=== PATIENT | female | born 1960 | race Caucasian/White ===

== ENCOUNTER 2023-04-14 12:39 | Outpatient (REF) | payer OTHER, SELFPAY ==
[2023-04-14 13:36] LABS: MANUAL DIFF FLAG NO
[2023-04-14 14:20] LABS: Basophils Percent Auto 0.5 % (0-2); Eosinophils Absolute Auto 0.2 X10*3/uL (0.0-0.4); Eosinophils Percent Auto 3.2 % (0-4); Hematocrit 41.9 % (37.0-47.0); Imm Gran Abs Auto 0.03 X10*3/uL (0.00-0.03); Imm Gran Pct Auto 0.5 % (0.0-0.4); Lymphocytes Absolute Auto 1.7 X10*3/uL (1.2-4.9); Lymphocytes Percent Auto 27.5 % (20-40); Mean Corpuscular HGB Conc 33.4 g/dl (31.0-35.0); Mean Corpuscular Volume 92.7 fL (80.0-98.0); Mean Platelet Volume 12.6 fL (9.4-12.3); Monocytes Absolute Auto 0.5 X10*3/uL (0.1-1.2); Monocytes Percent Auto 8.2 % (2-11); Neutrophils Absolute Auto 3.8 x10*3/uL (2.0-8.3); Neutrophils Percent Auto 60.1 % (45-73); Platelet Count 225 X10*3/uL (160-400); Red Blood Count 4.52 X10*6/uL (4.20-5.50); Red Cell Distribution Width 12.9 % (11.0-16.0); White Blood Count 6.3 X10*3/uL (4.8-10.8)
[2023-04-14 15:05] LABS: Alanine Aminotransferase 21 U/L (0-31); Albumin Level 4.2 g/dL (3.5-5.0); Alkaline Phosphatase 68 U/L (39-117); Anion Gap 13 (12-20); Aspartate Amino Transferase 17 U/L (5-31); Bilirubin Total 0.8 mg/dL (0.0-1.0); Blood Urea Nitrogen 13 mg/dL (9-16); Calcium 9.9 mg/dL (8.4-10.2); Carbon Dioxide 28 mmol/L (22-29); Chloride 107 mmol/L (96-108); Estimated Glomerular Filt Rate > 60; Glucose Random 85 mg/dL (60-115); Lipase 25 U/L (8-78); Potassium 4.3 mmol/L (3.3-5.1); Sodium 144 mmol/L (135-145)
[2023-04-14 15:15] LABS: Thyroid Stimulating Hormone 1.86 uIU/mL (0.32-4.0)
== END 2023-04-14 12:40 | disposition home or self-care (01) ==
LOC: HO.LAB 12:39
PROVIDERS: PCP Nurse Practitioner; Visit Provider Physician Assistant
DX: K58.9 Irritable bowel syndrome, unspecified (principal); R10.9 Unspecified abdominal pain; R11.2 Nausea with vomiting, unspecified
CPT/HCPCS: 36415; 80053; 83690; 84443; 85025

== ENCOUNTER 2023-05-07 09:17 | Outpatient (REF) | payer OTHER, SELFPAY ==
--- NOTE | ~2023-05-07 | US_ITS ---
EXAMINATION: US ABDOMEN COMPLETE CLINICAL INFORMATION: Unspecified abdominal pain. COMPARISON: None available. TECHNIQUE: Real-time imaging of the abdominal viscera. FINDINGS: PANCREAS: Normal. ABDOMINAL AORTA: The proximal, mid, and distal segments are normal in caliber. INFERIOR VENA CAVA: Visualized portions are normal. LIVER: Normal. The liver is normal in size. The liver contour is normal. Parenchymal echogenicity is normal. No focal hepatic lesion. There is no intrahepatic biliary duct dilatation seen. GALLBLADDER: The gallbladder is physiologically distended. Multiple mobile gallstones are present. No evidence of gallbladder wall thickening or pericholecystic fluid. COMMON BILE DUCT: Normal in caliber measuring 0.34 cm in diameter. RIGHT KIDNEY: Normal. No hydronephrosis. No renal calculi or focal parenchymal lesions. The kidney measures 12.2 cm in maximum dimension. LEFT KIDNEY: Normal. No hydronephrosis. No renal calculi or focal parenchymal lesions. The kidney measures 12.0 cm in maximum dimension. SPLEEN: Normal. The spleen measures 9.8 cm in maximum dimension. FREE FLUID: None. US/US abdomen complete IMPRESSION: There is cholelithiasis, without cholecystitis or choledocholithiasis.
== END 2023-05-07 09:18 | disposition home or self-care (01) ==
LOC: HO.US 09:17
PROVIDERS: PCP Nurse Practitioner; Visit Provider Physician Assistant
DX: R10.9 Unspecified abdominal pain (principal); R11.2 Nausea with vomiting, unspecified
CPT/HCPCS: 76700

== ENCOUNTER 2023-06-01 11:08 | Outpatient (AMB) | payer OTHER, SELFPAY ==
--- NOTE | 2023-06-01 11:16 | MHC.OFFVIS ---
Intake Vital Signs 06/01/23 11:18 Height 5 ft 7.5 in Weight 225 lb BMI 34.7 BP 139/75 Blood Pressure Location Lt brachial Position Sitting Pulse 91 Intake Visit Reasons: follow up after US Intake Note: Patient follow up for abdominal pain, lab and US results. Patient denies any GI issues. Cement Patcher Required: No Accompanied by: Self / Same As Patient Allergies No Known Allergies Allergy (Verified 06/01/23 11:16) HPI HPI Comments History of Present Illness Details A 62 y/o female persistent epigastric pain , with nausea and vomiting-f/u after U/S. She has made dietary modifications- changed eating routine-does fasting with very good response-she seems to feel better overall. However she have a celebratory we can and she overate a lot of greasy food/ oreos before bed- epigastric pain- woke up and vomited. She in followed a better eating plan is not have any symptoms She is very anxious about her symptoms she is leaving for an extended stay in for over the next 2 weeks. Reviewed U/S- revealing cholelithiasis Reviewed labs normal liver enzymes She has no hematemesis, hematochezia fever or chills [facility] Social History Household Members Other:: no kids Alcohol intake: current Patient Tobacco Use Status: Former Tobacco user Current occupational status: employed Review of Systems Const All systems reviewed & are unremarkable except as noted in HPI and below Card Denies chest pain and Denies dyspnea Resp Denies dyspnea GI Reports as per HPI, Reports abdominal pain (Worsens with certain foods) and Denies hematochezia Psych Reports anxiety Physical Exam Vital Signs: Last Vital Signs Pulse 91 06/01/23 11:18 BP 139/75 06/01/23 11:18 BMI result Body Mass Index 34.7 Const General: cooperative, comfortable and no acute distress Nutritional Appearance: overweight Orientation/consciousness: patient oriented x3 Limitations: no limitations Eyes Sclerae: sclerae normal Resp Effort & Inspection: normal respiratory effort and able to speak in complete sentences Skin General skin exam: no rashes or lesions noted Neuro General: patient oriented x3 Extrem General: Yes full ROM Psych Mental Status: mental status grossly normal Speech and movement: Clear speech present Affect: Labile affect present Attitude: cooperative Thought process: Normal thought process present Thought content: Normal thought content present Results Reviewed Results Reviewed: US/US abdomen complete IMPRESSION: There is cholelithiasis, without cholecystitis or choledocholithiasis. Assessment & Plan Assessment & Plan (1) Abdominal pain: Comment: Epigastric pain x1 year-workup labs, imaging Chest received note including findings on CT from 05/2022 with no findings to account for her symptoms Code(s): R10.9 - Unspecified abdominal pain (2) Cholelithiases: Comment: Intermittent abdominal pain, nausea vomiting then resolves, Code(s): K80.20 - Calculus of gallbladder without cholecystitis without obstruction Plan: HIDA scan Hopefully can be done prior to her relocation Plan Avoid culprits, abstain from alcohol, monitor symptoms She will call for results of scan Encouraged to call with any other questions or concerns Orders: Orders NM hepatobiliary w pharm Today K80.20 - Calculus of gallbladder without cholecystitis without obstruction, R10.9 - Unspecified abdominal pain Patient Instructions: 62-year-old female persistent epigastric pain nausea vomiting associated with no in culprits Reviewed ultrasound results reveal cholelithiasis-discuss referral to surgery, however she is going to be acid she sits for the next 4 or so months she declined referral Order - HIDA scan Avoid culprits, stain from alcohol Encouraged to call questions or concerns Coding Level of Care Code Est Pt Level 3 (69077) Diagnoses Abdominal pain R10.9 Cholelithiases K80.20 Time Spent (min) 30
[2023-06-01 11:18] VITALS: BP 139/75; PULSE 91; BMI 34.7
== END 2023-06-01 12:21 | disposition home or self-care (01) ==
PROVIDERS: PCP Nurse Practitioner; Visit Provider Physician Assistant
DX: R10.9 Unspecified abdominal pain (principal); K80.20 Calculus of gallbladder without cholecystitis without obstruction
CPT/HCPCS: 99213

== ENCOUNTER → 2023-06-01 11:08 | Outpatient (BNVA) | payer OTHER, SELFPAY | PROVIDERS: PCP Nurse Practitioner; Visit Provider Physician Assistant ==

== ENCOUNTER → 2023-06-11 10:59 | Outpatient (REF) | payer OTHER, SELFPAY ==
--- NOTE | ~2023-06-11 | NM_ITS ---
EXAMINATION: NM BILIARY TRACT CLINICAL INFORMATION: Upper abdominal pain. COMPARISON: None available. TECHNIQUE: 5 mCi technetium mebrofenin and 2 mcg CCK. Images obtained over the upper abdomen. FINDINGS: Uptake by the liver is within normal limits. Ductal activity by 10 minutes. Gallbladder activity by 14 minutes. Bowel activity by 17 minutes. Subsequent injection of CCK does not demonstrate any emptying of the gallbladder. NM/NM hepatobiliary w pharm IMPRESSION: Status post CCK administration there is no discernible emptying of the gallbladder. Therefore findings may well be consistent with dyskinesis of the gallbladder.
== END ==
LOC: HO.NUCMED 10:59
PROVIDERS: PCP Internal Medicine; Visit Provider Physician Assistant
DX: R10.9 Unspecified abdominal pain (principal); K80.20 Calculus of gallbladder without cholecystitis without obstruction
CPT/HCPCS: 78227; A9537; J2805

== ENCOUNTER 2023-07-12 08:27 | Outpatient (AMB) | payer OTHER, SELFPAY ==
[2023-07-12 08:28] VITALS: BP 140/83; PULSE 81; BMI 34.6
--- NOTE | 2023-07-12 08:28 | MHC.OFFVIS ---
Intake Vital Signs 07/12/23 08:28 Height 5 ft 7.5 in Weight 224 lb BMI 34.6 BP 140/83 H Blood Pressure Location Rt brachial Position Sitting Pulse 81 Intake Visit Reasons: Cholelithiasis Intake Note: This patient presents for an assessment for cholelithiasis. Patient c/o; reports epigastric pain, reports vomiting. HIDA Scan: 06/11/2023 Car Installations Supervisor Required: No Accompanied by: Self / Same As Patient Allergies No Known Allergies Allergy (Verified 07/12/23 08:36) Medication List - Last Reconciled 07/12/23 by Elías Reddy MD No Known Home Meds HPI Cholelithiasis HPI Details 62-year-old female referred for gallstones. She is being followed by Gastroenterology for a long history of recurrent nausea, occasional vomiting, along with chronic epigastric pain. She says that this has been going on for over a year and a half. She does not think that this is related to meals or fat oral intake. She says that this seems to come on randomly even at night. She says that he has can be sharp and would last for about 4 are sometimes and would be localized to the epigastric area. She had an ultrasound last May, showing gallstones. She had a HIDA scan as well which showed poor emptying of the gallbladder. [facility] Social History Household Members Other:: no kids Alcohol intake: current Patient Tobacco Use Status: Former Tobacco user Current occupational status: employed Review of Systems Const Denies chills and Denies fever(s) Card Denies chest pain, Denies dyspnea and Denies dyspnea on exertion Resp Denies cough, Denies dyspnea and Denies dyspnea on exertion GI Denies hematochezia and Denies change in bowel habits Denies hematuria Musc Denies back pain and Denies limited range of motion Neuro Denies focal weakness and Denies convulsions Psych Denies depression and Denies mood swings Physical Exam Vital Signs: Last Vital Signs Pulse 81 07/12/23 08:28 BP 140/83 H 07/12/23 08:28 BMI result Body Mass Index 34.6 Const General: comfortable and no acute distress Orientation/consciousness: patient oriented x3 Neck Neck: Yes no lymphadenopathy Resp Auscultation: clear to auscultation bilaterally Cardio Rhythm: regular rhythm GI Palpation (GI): Soft to palpation, nontender and no guarding Neuro General: patient oriented x3 Assessment & Plan Assessment & Plan (1) Cholelithiases: Comment: Intermittent abdominal pain, nausea vomiting then resolves, Code(s): K80.20 - Calculus of gallbladder without cholecystitis without obstruction Plan: She has a long history of intermittent epigastric pain and nausea. She does have gallstones on ultrasound as well as low ejection fraction. I had long discussion with her about the option of cholecystectomy in view of her above symptoms which may be related to her gallstones and dyskinesia. I explained the technique of laparoscopic cholecystectomy and possible open cholecystectomy. I reviewed the risks including but not limited to bleeding, infections, injury to bowel, liver, bile duct, bile leak, retained stones, as well as the benefits and alternatives. She understands the above. She says that her pain is in the epigastric area only and I did tell her that I not guarantee that this will totally resolve with cholecystectomy. One differential will be thick ulcer disease so I did tell her the option of going ahead with endoscopy with the GI service prior to surgery. She does spend asencio in [place] and will be back area in October,. She says she would like to therefore scheduled for endoscopy with the GI service for now and will see me after that. (2) Dyskinesia of gallbladder: Code(s): K82.8 - Other specified diseases of gallbladder Plan: She understands the option of proceeding with cholecystectomy for poor ejection fraction. He wants to proceed with endoscopy prior to going ahead with laparoscopic cholecystectomy. Coding Level of Care Code New Pt Level 4 (06398) Diagnoses Cholelithiases K80.20 Dyskinesia of gallbladder K82.8
== END 2023-07-12 08:57 | disposition home or self-care (01) ==
PROVIDERS: PCP Nurse Practitioner; Referring Provider Physician Assistant; Visit Provider Surgery
DX: K80.20 Calculus of gallbladder without cholecystitis without obstruction (principal); K82.8 Other specified diseases of gallbladder
CPT/HCPCS: 99204

== ENCOUNTER → 2023-07-12 08:27 | Outpatient (BNVA) | payer OTHER, SELFPAY | PROVIDERS: PCP Nurse Practitioner; Referring Provider Physician Assistant; Visit Provider Surgery ==

== ENCOUNTER 2023-10-26 09:01 | Day surgery (SDC) | payer OTHER, SELFPAY ==
[2023-10-22 14:38] VITALS: BMI 34.7
--- NOTE | 2023-10-26 09:22 | MHC.SHP ---
Pre-Procedural Eval Section A - 24 Hr Update-Section A only Date of Service: 10/26/23 Section B - Complete if H&P > 30 days Chief Complaint: Unspecified abdominal pain Relevant Family History (Specify if Yes): No Relevant Social History: Alcohol Use Present Medications: see Short Stay Collaborative assessment Medical History: Significant History ( Epigastric pain Cholelithiasis) History of Previous Operations: Relevant previous surgery/procedure and date(s) ( H/O colonoscopy Hx of total knee replacement) Allergies: Allergies Allergy/AdvReac Type Severity Reaction Status Date / Time No Known Allergies Allergy Verified 07/12/23 08:36 Review of Systems Sugical H&P ROS: Negative: Constitution, Cardiovascular, Respiratory, Neurological, Psychiatric, Hem-Onc, Allergic/Immunologic, Gastrointestinal, Genitourinary, Musculoskeletal, Integumentary, Endocrine and Eyes/Ears/Nose/Throat Exam Surgical H&P Exam: Normal: HEENT, Normal: Heart, Normal: Lungs, Normal: Extremities, Normal: Abdomen, Normal: Skin and Normal: Neurological Plan Diagnosis/Plan: Unchanged I have reviewed the history and physical and performed a pertinent physical examination on my patient. No changes have occurred unless specified. Time Spent With Patient Time: Total time managing care of this patient today ____ minutes.
[2023-10-26 09:31] VITALS: BMI 34.7
[2023-10-26 09:36] VITALS: BP 163/87; PULSE 64; RESP 16; TEMP 36.4; O2SAT 99
--- NOTE | 2023-10-26 09:47 | P.CONAN_ITS ---
[facility] Active Problems Active Problems: All Active Problems (Updated 10/22/23 @ 14:43 by India Acuna RN) Dyskinesia of gallbladder (Acute) Cholelithiases (Acute) Nausea and vomiting (Acute) History of knee replacement (Acute) Abdominal pain (Acute) Past Medical History Medical History Epigastric pain Cholelithiasis Family History Family history of problems with anesthesia: No Surgical History Surgical History H/O colonoscopy Hx of total knee replacement History of Problems with Anesthesia: No Social History Social History Household Members Other:: no kids Alcohol intake: current Patient Tobacco Use Status: Former Tobacco user Use of substances other than those prescribed or required for medical reasons: No Are you DNR?: No Advance Directives: No Advance Directives Information Provided: Yes Current occupational status: employed Meds Allergies Allergy/AdvReac Type Severity Reaction Status Date / Time No Known Allergies Allergy Verified 10/26/23 09:30 Home Medications Medication Instructions Recorded Confirmed Last Taken Type No Known Home Meds 06/01/23 10/26/23 Unknown History Exam Height,Weight and Vital Signs: Height 5 ft 7.5 in Weight 102.058 kg Last Vital Signs Temp 97.6 F 10/26/23 09:36 Pulse 64 10/26/23 09:36 Resp 16 10/26/23 09:36 BP 163/87 H 10/26/23 09:36 Pulse Ox 99 10/26/23 09:36 O2 Del Method Room Air 10/26/23 09:36 Airway Mallampati Class: I TM Dist: >3cm Neck ROM: Full Assessment and Plan Assessment Anesthesia Assessment: Anesthesia Plan Discussed and Chart Reviewed Final Anesthetic Review Family History of Problems with Anesthesia: No History of Problems with Anesthesia: No NPO: Yes ASA Class: II Final Preanesthetic Review: No Changes in Pt Med Stat, Meds/Allgs Chart Reviewed, Consent Obtained/Reviewed and Anes Risks/Benef Reviewed Patient Risk: Low Procedure Risk: Low Anesthetic Plan Anesthetic Plan: TIVA Disposition: Standard PACU
--- NOTE | 2023-10-26 10:20 | W.PM.OPN ---
Operative Note Operative Note Date of Service: 10/26/23 Narrative: Procedure Description: EGD Indication: epigastric pain Anesthesia: MAC FLEXIBLE TRANSORAL UPPER GASTROINTESTINAL ENDOSCOPY UPPER ENDOSCOPY Consent: Indications for the procedure and potential complications of bleeding, perforation, reaction to medications and missed diagnosis were discussed with the patient and informed consent was obtained. Instrument: Olympus GIF H 190 J mid size upper endoscope Monitoring: Vital signs and clinical assessment, continuous EKG monitoring, Pulse oximetry, Carbon Dioxide monitoring and blood pressure monitoring were done throughout the procedure. Procedure: The patient was placed in the left lateral decubitis position and pre-procedure medications were administered and a bite block was placed. The endoscope was inserted into the mouth and advanced under direct vision to the third part of duodenum. A careful inspection was made as the upper endoscope was withdrawn including a retroflexed examination of the proximal stomach; Findings and interventions are described below. Findings: Larynx:normal Esophagus: GE junction at 38 cm, diaphragm hiatus at 40 cm, consistent with 2 cm sliding hiatal hernia, with non obstructive schatzki ring noted, mild erythema noted at GEJ, bx taken from here as well as distal esophagus. Stomach: mild patchy erythema . Biopsies were obtained. Grade 2 flap valve on retroflexed examination of the cardia. Duodenum: Normal bulb and descending duodenum, bx taken Intervention: Biopsies as noted above, Impression/Findings: gastritis esophagitis schatzki ring hiatal hernia PLAN: consider PPI trial and see if helps her symptoms GERD precautions
[2023-10-26 10:25] VITALS: BP 121/72; PULSE 75; RESP 12; TEMP 36.4; O2SAT 100
[2023-10-26 10:40] VITALS: BP 126/81; PULSE 58; RESP 16; O2SAT 96
[2023-10-26 10:55] VITALS: BP 135/83; PULSE 70; RESP 16; TEMP 36.4; O2SAT 96
== END 2023-10-26 11:54 | disposition home or self-care (01) ==
PROVIDERS: PCP Internal Medicine; Visit Provider Internal Medicine Gastroenterology
PROC: 0DJ08ZZ Inspection of Upper Intestinal Tract, Via Natural or Artificial Opening Endoscopic (ICD-10-PCS; CPT 43235; principal; 2023-10-26 11:20)
DX: K31.A0 Gastric intestinal metaplasia, unspecified (principal); K29.70 Gastritis, unspecified, without bleeding; K20.90 Esophagitis, unspecified without bleeding; K29.80 Duodenitis without bleeding; K22.2 Esophageal obstruction; K44.9 Diaphragmatic hernia without obstruction or gangrene
CPT/HCPCS: 43239; 88305; 88313; 88342; J2704

== ENCOUNTER → 2023-10-26 09:01 | Outpatient (BNV) | payer OTHER, SELFPAY | PROVIDERS: PCP Internal Medicine; Visit Provider Internal Medicine Gastroenterology | DX: K20.90 Esophagitis, unspecified without bleeding (principal); K29.70 Gastritis, unspecified, without bleeding; K22.2 Esophageal obstruction | CPT/HCPCS: 43239 ==

== ENCOUNTER 2023-11-23 10:22 | Outpatient (REF) | payer OTHER, SELFPAY ==
[2023-11-25 10:29] LABS: H Pylori Breath Test Negative (Negative)
== END 2023-11-23 10:23 | disposition home or self-care (01) ==
LOC: HO.LNP 10:22
PROVIDERS: PCP Internal Medicine; Visit Provider Internal Medicine Gastroenterology
DX: R10.9 Unspecified abdominal pain (principal)
CPT/HCPCS: 83013

== ENCOUNTER 2024-12-14 11:01 | Outpatient (AMB) | payer OTHER, SELFPAY ==
--- NOTE | 2024-12-14 11:02 | MHC.OFFVIS ---
Vital Signs 12/14/24 11:05 Height 5 ft 7.5 in Weight 215 lb BMI 33.2 BP 140/86 H Blood Pressure Location Lt brachial Position Sitting Pulse 75 Pulse Oximetry (%) 97 Oxygen Delivery Method Room Air Intake Visit Reasons: Vomitting & abd. pain Intake Note: Patient complex follow up for vomit and abdominal pain/Angle berna was 06/01/2023 and last EGD was 10/26/[address] Shah. Patient cc: vomit on and off, abdominal pain come and go and also acid reflux on and off. 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 pain: Details: Patient is a 64-year-old female with PMH of obesity and GERD. Last visit with MIRA Ragland 06/01/2023 for follow-up as epigastric pain. Pt is here today for follow up on ab pain. She reports symptoms first began intermittently over the past two years and have been worsening. The patient experiences severe epigastric pain that awakens them at night, occurring approximately three times a week. They feel relief from the pain after inducing vomiting. The symptoms seem to have improve this past week after the elimination of coffee. The patient previously had an endoscopy in October 2023, revealing inflammation in the esophagus and stomach but did not follow up with the prescribed PPI, pantoprazole. They also have a history of gallbladder motility issues assessed via ultrasound and HIDA scan, with reports of her gallbladder functioning at 40%. She reports labs within the last 2-3 weeks, completed at lab [facility], ordered by [facility] provider. Shares upcoming screening colonoscopy scheduled for January with an outside agency. Minoxidil 1.5 mg with multivitamin blend (recently started) prescribed through [facility] for hair loss. Patient denies: fever/chills, dysphasia, unintentional wt loss or melena/hematochezia. Social hx: Diet: Recently eliminated coffee Alcohol/Tobacco/Drug Use: Drinks two beers daily, quit smoking 20 years ago, no recreational drug use Occupation: Active at work, sedentary at home -family hx as below -denies personal hx of CA -denies significant cardiopulmonary history PFSH Medical History (Updated 12/14/24 @ 12:11 by Tennille Cardenas CNP) Acid reflux Epigastric pain Cholelithiasis Surgical History History of esophagogastroduodenoscopy (EGD) H/O colonoscopy Hx of total knee replacement Family History (Updated 12/14/24 @ 11:33 by Tennille Cardenas CNP) Mother Maury disease Heart transplant recipient Social History Household Members Other:: no kids Alcohol intake: current Patient Tobacco Use Status: Former Tobacco user Current occupational status: employed Review of Systems Const Reports as per HPI ENT Reports as per HPI Card Reports as per HPI Resp Reports as per HPI GI Reports as per HPI Reports as per HPI Physical Exam Vital Signs: Last Vital Signs Pulse 75 12/14/24 11:05 BP 140/86 H 12/14/24 11:05 Pulse Ox 97 12/14/24 11:05 Oxygen Delivery Method Room Air 12/14/24 11:05 BMI result Body Mass Index 33.2 Const General: healthy appearing, no acute distress and well developed Nutritional Appearance: well nourished Orientation/consciousness: patient oriented x3 HEENT Head: Yes normal to inspection, Yes normocephalic and Yes atraumatic Face and sinus: Yes normal facial exam Eyes General: appearance normal, both eyes and all related structures Neck Neck: Yes normal visual inspection Resp Effort & Inspection: normal respiratory effort, able to speak in complete sentences, no tracheal deviation and symmetric chest movement Auscultation: clear to auscultation bilaterally Cardio Jugular venous distension: no JVD Rate: regular rate Rhythm: regular rhythm Heart sounds: S1 normal heart sound present, S2 normal heart sound present, no gallops and no murmurs GI Inspection: Yes obesity Palpation (GI): Soft to palpation, not firm, Tenderness to palpation present (GI) (Epigastric tender to palpation per pt report; no objective findings ) in the epigastrum and No hepatosplenomegaly present Auscultation: normal bowel sounds Neuro General: patient oriented x3 Gait exam (Neuro): Normal gait present Psych Appearance: grossly normal Mental Status: mental status grossly normal Speech and movement: Normal speech and movement present Affect: normal affect Attitude: cooperative Thought process: Normal thought process present Thought content: Normal thought content present Insight: Good insight present (Psych) Judgement: Good judgement present (Psych) Results Reviewed Results Reviewed: Addendum Dictated By: Lucas Shah MD Addendum Signed By: 10/26/23 1054 pt agreeable to PPI trial, admits to taking a lot of nsaid, advised to cut back and can use tylenol Operative Note Operative Note Date of Service: 10/26/23 Procedure Description: EGD Indication: epigastric pain FLEXIBLE TRANSORAL UPPER GASTROINTESTINAL ENDOSCOPY UPPER ENDOSCOPY Procedure: The patient was placed in the left lateral decubitis position and pre-procedure medications were administered and a bite block was placed. The endoscope was inserted into the mouth and advanced under direct vision to the third part of duodenum. A careful inspection was made as the upper endoscope was withdrawn including a retroflexed examination of the proximal stomach; Findings and interventions are described below. Findings: Larynx:normal Esophagus: GE junction at 38 cm, diaphragm hiatus at 40 cm, consistent with 2 cm sliding hiatal hernia, with non obstructive schatzki ring noted, mild erythema noted at GEJ, bx taken from here as well as distal esophagus. Stomach: mild patchy erythema . Biopsies were obtained. Grade 2 flap valve on retroflexed examination of the cardia. Duodenum: Normal bulb and descending duodenum, bx taken Intervention: Biopsies as noted above, Impression/Findings: gastritis esophagitis schatzki ring hiatal hernia PLAN: consider PPI trial and see if helps her symptoms GERD precautions Pathology Collected: 10/26/23 Location: [facility] Received: 10/26/23 Diagnosis A. Duodenum, biopsy: Chronic inactive duodenitis. B. Stomach, biopsy: Antral-type and oxyntic mucosa with moderate chronic, focally active, inflammation and intestinal metaplasia; negative for dysplasia; no Helicobacter organisms seen. C. GE junction, biopsy: - Cardiac-type mucosa with moderate chronic inactive inflammation; no intestinal metaplasia seen. - No squamous epithelium seen. D. Esophagus, distal, biopsy: Squamous epithelium within normal limits; no inflammation seen. Clinical History Pre-Op Dx: Abdominal pain Post-Op Dx: Gastritis, esophagitis, hiatal hernia, Schatzki's ring Date of Service: 06/11/23 Procedure(s): AR hepatobiliary w pharm Accession Number(s): [id number] cc: Angle Orozco PA-C; George Medina MD~ EXAMINATION: AR BILIARY TRACT CLINICAL INFORMATION: Upper abdominal pain. COMPARISON: None available. TECHNIQUE: 5 mCi technetium mebrofenin and 2 mcg CCK. Images obtained over the upper abdomen. FINDINGS: Uptake by the liver is within normal limits. Ductal activity by 10 minutes. Gallbladder activity by 14 minutes. Bowel activity by 17 minutes. Subsequent injection of CCK does not demonstrate any emptying of the gallbladder. AR/AR hepatobiliary w pharm IMPRESSION: Status post CCK administration there is no discernible emptying of the gallbladder. Therefore findings may well be consistent with dyskinesis of the gallbladder. Date of Service: 05/07/23 Procedure(s): US abdomen complete Accession Number(s): [id number] cc: FRANC GONZALEZ NP; Angle Orozco PA-C~ EXAMINATION: US ABDOMEN COMPLETE CLINICAL INFORMATION: Unspecified abdominal pain. COMPARISON: None available. TECHNIQUE: Real-time imaging of the abdominal viscera. FINDINGS: PANCREAS: Normal. ABDOMINAL AORTA: The proximal, mid, and distal segments are normal in caliber. INFERIOR VENA CAVA: Visualized portions are normal. LIVER: Normal. The liver is normal in size. The liver contour is normal. Parenchymal echogenicity is normal. No focal hepatic lesion. There is no intrahepatic biliary duct dilatation seen. GALLBLADDER: The gallbladder is physiologically distended. Multiple mobile gallstones are present. No evidence of gallbladder wall thickening or pericholecystic fluid. COMMON BILE DUCT: Normal in caliber measuring 0.34 cm in diameter. RIGHT KIDNEY: Normal. No hydronephrosis. No renal calculi or focal parenchymal lesions. The kidney measures 12.2 cm in maximum dimension. LEFT KIDNEY: Normal. No hydronephrosis. No renal calculi or focal parenchymal lesions. The kidney measures 12.0 cm in maximum dimension. SPLEEN: Normal. The spleen measures 9.8 cm in maximum dimension. FREE FLUID: None. US/US abdomen complete IMPRESSION: There is cholelithiasis, without cholecystitis or choledocholithiasis Assessment & Plan Assessment & Plan (1) Acid reflux: Comment: EGD October 2023-Gastritis, esophagitis, hiatal hernia, Schatzki's ring Code(s): K21.9 - Gastro-esophageal reflux disease without esophagitis Category: Medical Qualifiers: Esophagitis bleeding: without hemorrhage Esophagitis presence: with esophagitis Qualified Code(s): K21.00 - Gastro-esophageal reflux disease with esophagitis, without bleeding Plan: Additional Tests: Obtain recent lab work results (CBC, CMP) from [facility] Medications: Restart pantoprazole, 30 minutes before the first meal of the day, for an 8-week trial Lifestyle Modifications: - Avoid coffee, alcohol, spicy foods, acidic foods - Smaller meals, avoid lying down immediately after eating, remain upright for 2-3 hours post-meal - Increase physical activity to 150 minutes of moderate exercise per week Follow-Up: Evaluate symptom improvement after 8 weeks of pantoprazole, consider weaning off if symptoms improve (2) Abdominal pain: Comment: HIDA scan June 2023-dyskinesis of the gallbladder Code(s): R10.9 - Unspecified abdominal pain Category: Medical Qualifiers: Abdominal location: epigastric Qualified Code(s): R10.13 - Epigastric pain Plan: Secondary to acid reflux VS gallbladder dysfunction. Shared decision-making to trial plan as above. Referral: Submitted for surgical consultation if lifestyle modifications and PPI trial are ineffective Instructed to monitor for symptom escalation such as increased frequency or severity of pain, fever, or changes in bowel habits Plan Follow-up in 4 weeks or sooner as needed Time: I spent a total of 50 minutes on the date of encounter which includes: Preparing to see the patient (reviewed previous documentation, test results and medical history) Performing a medically appropriate exam and/or evaluation Ordering medications, tests, and procedures Documenting clinical information in the health record Medications: Changed From pantoprazole 20 mg PO DAILY 90 tabs 2RF To pantoprazole Take one tablet daily, best taken before 30 minutes before meals 20 mg PO DAILY 90 tabs 2RF Coding Level of Care Code Established Pt Est Pt Level 4 (94139) Patient Type Established Diagnoses Gastroesophageal reflux disease with esophagitis without hemorrhage K21.00 Esophagitis bleeding: without hemorrhage Esophagitis presence: with esophagitis Epigastric pain R10.13 Abdominal location: epigastric
[2024-12-14 11:05] VITALS: BP 140/86; PULSE 75; O2SAT 97; BMI 33.2
--- OUTSIDE RECORDS SUMMARY | 2024-12-14 12:32 | XMS_ITS | Continuity of Care Document ---
Author Organization [facility] Address [address] [place] [address] Phone Care Team Providers Care Sales Merchandising Specialist Name Role Phone Sukhdev Ortiz Unavailable Unavailable Allergies, Adverse Reactions, Alerts Substance Reaction Status Criticality No Known Allergies Active No Inform ation Procedures Procedure Date Offic/outpt E&m Estab 5 Min Trial- Telem edicine CT & [place] Office/Outpt E&M Established 10 Mins- CT & [place] Phleb Veins - Extrem 20+ - CT & [place] Duplex Scan-extrem Veins; Uni/ CT & [place] O Endovenous Laser, 1st Vein- CT & [place] Ultrason Guidan Needle Bx-rad- CT & [place] O Inj Sclerosing Solution; Sngl- CT & [place] O ct Offic/outpt E&m Estab 5 Min Trial- Telem edicine CT & [place] Offic Cons New/estab Mod-hi 60- CT & [place] Duplex Scan-extrem Veins; Comp- CT & [place] Advance Directives Directive Yes / No Effective Date File Name No Information Encounters Encounter Description Practice Location Reason(s) For Visit Diagnoses Date Provider Providers Copied on Encounter Offic/outpt E&m Estab 5 Min Trial- Telemedicine [place] & [place] [facility], [address] [place] [address] [address], [id number], [place] tel:[phone] CVR [facility] Venous insufficienc y (chronic) (peripheral) 4 Godwin Santizo. [address] [place] [address] [address], [facility] [place], [id number], [place]. tel:[phone] Referring Provider: Viridiana Connor NP, [address] [place] [address] [address] , [place], [address]. tel:[phone] Office/Outpt E&M Established 10 Mins- CT & [place] [facility], [address] [place] [address] [address], [id number], [place] tel:[phone] CVR - [facility] Varicose veins of left lower extremity with pain 4 Ned LEIJA RVT, NANCY Albert. [address] [place] [address], [place], [id number], [place]. tel:[phone] Referring Provider: Viridiana Connor NP, [address] [place] [address] [address] , [place], [address]. tel:[phone] [facility], [address] [place] [address] [address], [id number], [place] tel:[phone] CVR - [facility] Varicose veins of left lower extremity with other complication s 4 Ned LEIJA RVT, NANCY Albert. [address] [place] [address], [facility] [place], [id number], [place]. tel:[phone] Referring Provider: Viridiana Connor NP, [address] [place] [address] [address], [place], [address]. tel:[phone] [facility], [address] [place] [address] [address], [id number], [place] tel:[phone] CVR - [place] Encounter for follow-up examination after completed treatment for conditions other than malignant neoplasmVari cose veins of left lower extremity with pain 4 Ned LEIJA RVT, NANCY Albert. [address] [place] [address] Suite [facility], [facility] [place], [id number], [place]. tel:[phone] Referring Provider: Viridiana Connor NP, [address] [facility] [address], [place], [address]. tel:[phone] [facility], [address] [place] [address] Dr Alexis [address], [place], [id number], [place] tel:[phone] CVR - [facility] Chronic venous hypertension (idiopathic) with inflammation of left lower extremity Oct-2 4 Ned LEIJA RVT, NANCY Albert. [address] [place] [address], [place], [place], [id number], [place]. tel:[phone] Referring Provider: Viridiana Connor NP, [address] [facility] [address], [place], [address]. tel:[phone] [facility], [address] [place] [address] Dr Alexis [address] [address], [place], [id number], [place] tel:[phone] CVR - [facility] No Information Oct-2 4 Ned LEIJA RVT, NANCY Albert. [address] [place] [address], [place], [place], [id number], [place]. tel:[phone] Offic/outpt E&m Estab 5 Min Trial- Telemedicine [place] & [place] [facility] [place]AY, [address] [place] [address] Dr Alexis [address], [place], [id number], [place] tel:[phone] [facility] Localized edemaVenous insufficienc y (chronic) (peripheral) Oct-0 4 Godwin Santizo. [address] [place] [address], [place], [place], [id number], [place]. tel:[phone] Referring Provider: Viridiana Connor NP, [address] [facility] [address], [place], [address]. tel:[phone] Offic Cons New/estab Mod-hi 60- CT & [place] [facility], [address] [place] [address] Dr Alexis [address], [id number], [place] tel:[phone] CVR - [facility] Varicose veins of bilateral lower extremities with other complication sLocalized edema 4 Ned LEIJA RVT, NANCY Albert. [address] [facility] [address], [place], [id number], [place]. tel:[phone] Referring Provider: Viridiana Connor NP, [address] [facility] [address], [place], [address]. tel:[phone] [facility], [address] [facility] [address] [facility] [address], [place], [id number], tel:[phone] CVR - [facility] Varicose veins of bilateral lower extremities with pain 4 Ned LEIJA RVT, NANCY Albert. [address] [address], [place], [id number], [place]. tel:[phone] Referring Provider: Viridiana Connor NP, [address] [facility] [address], [place], [address]. tel:[phone] Family History Family Member Type Diagnosis Age At Onset No Information Payers Payer name Insurance type Covered constitution party [facility] [id number] Social History Type Description Quantity Date Captured Comments Alcohol Use Details Unknown Caffeine Use Details Unknown Tobacco Use Status Never smoked tobacco 2023 Smoking Status Never smoker Non-Smoking Tobacco Use Details : No Details Available : No Details Available Sex Female Chief Complaint And Reason For Visit No Information Reason For Referral Reason For Referral No Information Plan Of Treatment Date Type Action Status Goal Diet education completed Referral Ordered: Weight management: Referral to physician timeframe: 3 Months (related to Body mass index (BMI) 34.0-34.9, adult) ordered History Of Present Illness Encounter Date Complaint History Of Prese nt Illness No Information Functional Status Date Functional Assessmen t No Information Instructions Date Instruction Additional Infor mation Patient education booklet given Related to Localized edema Pre and post instruc tions reviewed and provided Related to Localized edema Diet education Related to Body mass index (BMI) 34.0-34.9, adult Giving Encouragement to exercise Related to Body mass index (BMI) 34.0-34.9, adult Lifestyle education Related to B joe mass index (BMI) 34.0-34.9, adult Patient education booklet given Related to Varicose veins of bilateral lower extremities with other complications Pre and post instruc tions reviewed and provided Related to Varicose veins of bilateral lower extremities with other complications Assessments Type Assessment Date assessment Venous insufficiency (chronic) ( peripheral) Patient Care Teams Name Effective Dates (start - stop) Status Members No Information
== END 2024-12-14 11:52 | disposition home or self-care (01) ==
LOC: HO.HGI 11:01
PROVIDERS: PCP Internal Medicine; Visit Provider Nurse Practitioner Family
DX: K21.00 Gastro-esophageal reflux disease with esophagitis, without bleeding (principal); R10.13 Epigastric pain
CPT/HCPCS: 99214

== ENCOUNTER → 2024-12-14 11:01 | Outpatient (BNVA) | payer OTHER, SELFPAY | PROVIDERS: PCP Internal Medicine; Visit Provider Nurse Practitioner Family ==

== ENCOUNTER 2025-01-16 10:57 | Outpatient (AMB) | payer OTHER, SELFPAY ==
--- NOTE | 2025-01-16 11:03 | A.OFFVIS_ITS ---
Vital Signs 01/16/25 11:05 Height 5 ft 7.5 in Weight 220 lb BMI 33.9 BP 139/86 Blood Pressure Location Lt brachial Position Sitting Pulse 68 Pulse Oximetry (%) 99 Oxygen Delivery Method Room Air Intake Visit Reasons: 4 wks abd pain Intake Note: Patient 4 weeks follow up for abdominal pain. Patient cc: vomiting on and off, abdominal pain/night time and denies any other GI issues. 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 Patricia presents for follow-up of persistent epigastric pain and vomiting, with episodes most often occurring at night after dinner. Since the last visit, frequency of sick episodes has decreased from up to three times weekly to four times over the past month, with three episodes occurring recently. An episode often begins with severe, centrally located epigastric pain approximately 3?4 hours postprandially, followed by tossing and turning, and then forced emesis after which pain resolves. The pain is described as horrible and localized to the epigastric region. Triggers have potentially included various foods (pulled pork, greasy chips, tea with kali and collagen), but also occurred after a plain chicken and stuffing meal. She notes switching from coffee to kali tea due to concern for fluid intake and GI symptoms, with suspicion that kali tea may be worsening symptoms. Since initiation of Pantoprazole 20mg oral daily, has had no symptoms of acid reflux, including when eating spicy foods (e.g., jalapeno bread). Nausea and vomiting episodes are not associated with abnormal bowel habits; she reports normal bowel function, no diarrhea, constipation, or hematochezia. No recent fever. Unable to provide recent laboratory data; patient states no reported abnormalities as per PCP. Shares upcoming screening colonoscopy scheduled for January with an outside agency. [facility] Medical History (Updated 12/14/24 @ 12:11 by Tennille Cardenas CNP) Acid reflux Epigastric pain Cholelithiasis Surgical History History of esophagogastroduodenoscopy (EGD) H/O colonoscopy Hx of total knee replacement Family History Mother Boyd disease Heart transplant recipient Social History Household Members Other:: no kids Alcohol intake: current Patient Tobacco Use Status: Former Tobacco user Current occupational status: employed Review of Systems Const Reports as per HPI ENT Reports as per HPI Card Reports as per HPI Resp Reports as per HPI GI Reports as per HPI Reports as per HPI Physical Exam Vital Signs: Last Vital Signs Pulse 68 01/16/25 11:05 BP 139/86 01/16/25 11:05 Pulse Ox 99 01/16/25 11:05 Oxygen Delivery Method Room Air 01/16/25 11:05 BMI result Body Mass Index 33.9 Const General: healthy appearing, no acute distress and well developed Nutritional Appearance: well nourished Orientation/consciousness: patient oriented x3 HEENT Head: Yes normal to inspection, Yes normocephalic and Yes atraumatic Face and sinus: Yes normal facial exam Eyes General: appearance normal, both eyes and all related structures Neck Neck: Yes normal visual inspection Resp Effort & Inspection: normal respiratory effort, able to speak in complete sentences, no tracheal deviation and symmetric chest movement Auscultation: clear to auscultation bilaterally Cardio Jugular venous distension: no JVD Rate: regular rate Rhythm: regular rhythm Heart sounds: S1 normal heart sound present, S2 normal heart sound present, no gallops and no murmurs GI Inspection: Yes normal to inspection, No distended and Yes obesity Palpation (GI): Soft to palpation, not firm, nontender and No hepatosplenomegaly present Auscultation: normal bowel sounds Neuro General: patient oriented x3 Gait exam (Neuro): Normal gait present Psych Appearance: grossly normal Mental Status: mental status grossly normal Speech and movement: Normal speech and movement present Affect: normal affect Attitude: cooperative Thought process: Normal thought process present Thought content: Normal thought content present Insight: Good insight present (Psych) Judgement: Good judgement present (Psych) Assessment & Plan Assessment & Plan (1) Dyskinesia of gallbladder: Code(s): K82.8 - Other specified diseases of gallbladder Category: Medical Plan: Confirmed by HIDA scan showing dysmotility; symptom pattern (postprandial, nocturnal pain, relieved by emesis) is consistent. Along with multiple gallstones noted on 05/07/23 ab ultrasound. - Additional Tests: - Await colonoscopy (scheduled at [facility]) to rule out lower GI pathology - Attempt to obtain recent labs from PCP (CBC, LFTs, electrolytes for further assessment, per previous order) - Medications: - Continue Pantoprazole 20mg oral daily for acid suppression - Lifestyle Modifications: - Avoid fatty, greasy, and known trigger foods - Discontinue kali tea/collagen temporarily to assess for symptom improvement - Continue previously advised postprandial upright positioning - Provided reassurance regarding manageability with dietary modification and medication potential post-cholecystectomy. Advised to coordinate discussion with general surgery team for more precise risk percentages/statistical risk. - Follow-Up: - Referral to general surgery for cholecystectomy evaluation, scheduled after visit for 01/26/25 (2) Acid reflux: Comment: EGD October 2023-Gastritis, esophagitis, hiatal hernia, Schatzki's ring Code(s): K21.9 - Gastro-esophageal reflux disease without esophagitis Category: Medical Qualifiers: Esophagitis presence: with esophagitis Esophagitis bleeding: without hemorrhage Qualified Code(s): K21.00 - Gastro-esophageal reflux disease with esophagitis, without bleeding Plan: Well documented on prior EGD; current symptoms not suggestive of active upper tract involvement while on PPI. - Medications: - Continue Pantoprazole 20mg oral daily - Lifestyle Modifications: Encouraged to take pantoprazole as prescribed, taken at least 30-60 minutes before a meal. Education on GERD prevention : -Advised against heavy meals; encouraged small, frequent meals instead of large ones. - Instructed to remain upright for 2?3 hours after eating. - Advised to avoid late-night meals, spicy foods, caffeine, alcohol, known dietary triggers, and tight-fitting clothing. - Emphasis placed on gradual implementation of lifestyle changes to improve adherence and symptom control. - Follow-Up: - Periodic monitoring for breakthrough symptoms; consider repeat EGD only if new/different symptoms develop Plan Follow-up in 4 weeks or sooner as needed Time: I spent a total of 25 minutes on the date of encounter which includes: Preparing to see the patient (reviewed previous documentation, test results and medical history) Performing a medically appropriate exam and/or evaluation Ordering medications, tests, and procedures Documenting clinical information in the health record Coding Level of Care Code Established Pt Est Pt Level 3 (76461) Patient Type Established Diagnoses Dyskinesia of gallbladder K82.8 Gastroesophageal reflux disease with esophagitis without hemorrhage K21.00 Esophagitis presence: with esophagitis Esophagitis bleeding: without hemorrhage
[2025-01-16 11:05] VITALS: BP 139/86; PULSE 68; O2SAT 99; BMI 33.9
--- OUTSIDE RECORDS SUMMARY | 2025-01-16 13:00 | XMS_ITS | Data Portability ---
Author Organization [facility], [facility] Address [address] [place] [address] Care Team Providers Care Field Crew Chief Name Role Phone FRANC GONZALEZ Primary Care Provider Assessment Encounter Date Assessment Date Assessment LastModified by Organization Details LastModified Time 11/10/2024 11/10/2024 Nature of diagnosis was discussed with the patient today. At this time do not see any complications with the implant no signs and symptoms of infection lysis or loosening. Do believe this likely from soft tissue related in regards to the patellofemoral joint. Discussed multiple treatment options to include formal physical therapy as well as oral or topical anti-inflammatori es. At this time patient wished to go forward with a home stretching and strengthening program. Will use as needed anti-inflammatori es as needed. Should symptoms change or become painful we will happily see her back if she does wish to pursue formal physical therapy can call for such her convenience. [email or web address] Not available 11/10/2024 11:00:02 Plan of Treatment Reminders Order Date Submit Date Provider Last Modified By Organization Details Last Modified Time Details Appointments None recorded. Lab None recorded. Referral physical therapist referral - General non-impact strengtheni ng and flexibility program with propriocept claudia training. 2024 025 [email or web address] Not available 16:40:22 Procedures None recorded. Surgeries None recorded. Imaging XR, shoulder, 2 or more view - room 222, L shoulder 4v 2024 025 utisael [facility], [address], [place], [address], 5 16:40:22 XR, knee, 3 view - room 204, hx of bilateral TKRs [email or web address] 2024 025 [email or web address] Chris [facility], [address], [facility] [address], [place], [address], 11:14:21 Medication Orders None recorded. Patient TargetsNo targets recorded. Patient InstructionsNo instructions recorded. Reason for Referral Physical Therapist Referral for Bilateral shoulder osteoarthritis General non-impact strengthening and flexibility program with proprioceptive training. Referring Physician: Samuel Valadez, Orthopedic Surgery, Encounter Date: 11/28/2024 Results Created Date Observation Date Name Description Value Unit Range Abnormal Flag Note LastModifiedBy Organization Detail LastModifiedTime 11/08/1911/08/2024 CBC WITH DIFFE RENTI AL/PL ATELE T WBC 7.3 x10e3 /uL 3.4-10 .8 normal Not Available [facility] ([facility]) [address] [place], [address], 11/08/2024 06:06:24 11/08/19 25 11/08/2024 CBC WITH DIFFE RENTI AL/PL ATELE T RBC 4.31 x10e6 /uL 3.77-5 .28 normal Not Available [facility] ([facility]) [address] [place], [address], 11/08/2024 06:06:24 11/08/19 25 11/08/2024 CBC WITH DIFFE RENTI AL/PL ATELE T hemoglobin 13.6 g/dL 11.1-1 5.9 normal Not Available [facility] ([facility]) [address] [place], [address], 11/08/2024 06:06:24 11/08/19 25 11/08/2024 CBC WITH DIFFE RENTI AL/PL ATELE T hematocrit 40.1 % 34.0-4 6.6 normal Not Available [facility] ([facility]) [address] [place], [address], 11/08/2024 06:06:24 11/08/19 25 11/08/2024 CBC WITH DIFFE RENTI AL/PL ATELE T MCV 93 fL 79-97 normal Not Available [facility] ([facility]) [address] [facility], [place], [address], 11/08/2024 06:06:24 11/08/19 25 11/08/2024 CBC WITH DIFFE RENTI AL/PL ATELE T MCH 31.6 pg 26.6-3 3.0 normal Not Available [facility] ([facility]) [address] [facility], [place], [address], 11/08/2024 06:06:24 11/08/19 25 11/08/2024 CBC WITH DIFFE RENTI AL/PL ATELE T MCHC 33.9 g/dL 31.5-3 5.7 normal Not Available [facility] ([facility]) [address] [facility], [place], [address], 11/08/2024 06:06:24 11/08/19 25 11/08/2024 CBC WITH DIFFE RENTI AL/PL ATELE T RDW 12.6 % 11.7-1 5.4 Not Available [facility] ([facility]) [address] [facility], [place], [address], 11/08/2024 06:06:24 11/08/19 25 11/08/2024 CBC WITH DIFFE RENTI AL/PL ATELE T platelets 253 x10e3 /uL 150-45 0 normal Not Available [facility] ([facility]) [address] [facility], [place], [address], 11/08/2024 06:06:24 11/08/19 25 11/08/2024 CBC WITH DIFFE RENTI AL/PL ATELE T neutrophils 58 % not estab. normal Not Available [facility] ([facility]) [address] [facility], [place], [address], 11/08/2024 06:06:24 11/08/19 25 11/08/2024 CBC WITH DIFFE RENTI AL/PL ATELE T lymphs 26 % not estab. normal Not Available [facility] ([facility]) [address] [facility], [place], [address], 11/08/2024 06:06:24 11/08/19 25 11/08/2024 CBC WITH DIFFE RENTI AL/PL ATELE T monocytes 9 % not estab. normal Not Available [facility] ([facility]) [address] [facility], [place], [address], 11/08/2024 06:06:24 11/08/19 25 11/08/2024 CBC WITH DIFFE RENTI AL/PL ATELE T eos 5 % not estab. normal Not Available [facility] ([facility]) [address] [facility], [place], [address], 11/08/2024 06:06:24 11/08/19 25 11/08/2024 CBC WITH DIFFE RENTI AL/PL ATELE T basos 1 % not estab. normal Not Available [facility] ([facility]) [address] [facility], [place], [address], 11/08/2024 06:06:24 11/08/19 25 11/08/2024 CBC WITH DIFFE RENTI AL/PL ATELE T immature cells GRADUATE RECRUITER Not Available [facility] ([facility]) [address] [facility], [place], [address], 11/08/2024 06:06:24 11/08/19 25 11/08/2024 CBC WITH DIFFE RENTI AL/PL ATELE T neutrophils (absolute) 4.3 x10e3 /uL 1.4-7. 0 normal Not Available [facility] ([facility]) [address] [facility], [place], [address], 11/08/2024 06:06:24 11/08/19 25 11/08/2024 CBC WITH DIFFE RENTI AL/PL ATELE T lymphs (absolute) 1.9 x10e3 /uL 0.7-3. 1 normal Not Available [facility] ([facility]) [address] [facility], [place], [address], 11/08/2024 06:06:24 11/08/19 25 11/08/2024 CBC WITH DIFFE RENTI AL/PL ATELE T monocytes(ab solute) 0.6 x10e3 /uL 0.1-0. 9 normal Not Available [facility] ([facility]) [address] [facility], [place], [address], 11/08/2024 06:06:24 11/08/19 25 11/08/2024 CBC WITH DIFFE RENTI AL/PL ATELE T eos (absolute) 0.4 x10e3 /uL 0.0-0. 4 normal Not Available [facility] ([facility]) [address] [place], [address], 11/08/2024 06:06:24 11/08/19 25 11/08/2024 CBC WITH DIFFE RENTI AL/PL ATELE T baso (absolute) 0.1 x10e3 /uL 0.0-0. 2 normal Not Available [facility] ([facility]) [address] [facility], [place], [address], 11/08/2024 06:06:24 11/08/19 25 11/08/2024 CBC WITH DIFFE RENTI AL/PL ATELE T immature granulocytes 1 % not estab. Not Available [facility] ([facility]) [address] [place], [address], 11/08/2024 06:06:24 11/08/19 25 11/08/2024 CBC WITH DIFFE RENTI AL/PL ATELE T immature grans (abs) 0.1 x10e3 /uL 0.0-0. 1 Not Available [facility] ([facility]) [address] [place], [address], 11/08/2024 06:06:24 11/08/19 25 11/08/2024 CBC WITH DIFFE RENTI AL/PL ATELE T NRBC GRADUATE RECRUITER Not Available [facility] ([facility]) [address] [facility], [place], [address], 11/08/2024 06:06:24 11/08/19 25 11/08/2024 CBC WITH DIFFE RENTI AL/PL ATELE T hematology comments: GRADUATE RECRUITER Not Available [facility] ([facility]) [address] [facility], [place], [address], 11/08/2024 06:06:24 11/08/19 25 11/08/2024 SEDIM ENTAT ION RATE- WESTE RGREN sedimentatio n rate-westerg marilu 4 mm/HR 0-40 normal Not Available [facility] ([facility]) [address] [facility], [place], [address], 11/08/2024 06:06:25 11/08/19 25 11/08/2024 C-CATHLEEN CTIVE PROTE IN, QUANT C-reactive protein, quant 2 mg/L 0-10 normal Not Available [facility] ([facility]) [address] [facility], [place], [address], 11/08/2024 06:06:26 11/11/19 25 11/10/2024 XR, knee, 3 view [email or web address] ?Encry pted=s hAaTro YD8dLq bEUv6g %2BXZw aYqtaq 0bqfl% 2Fg9IQ a4ajBk vP9nXo QUaueC m3YtLR FvZlgJ JJ8mAn HZtai3 6e8782 AC0KqY 3%2BEU aCvKiQ trMwF INTERFACE [facility] [address], [place], [address], 11/10/2024 10:06:20 11/11/19 25 11/10/2024 XR, knee, 3 view [email or web address] ?Encry pted=s hAaTro YD8dLq bEUv6g %2BXZw aYqtaq 0bqfl% 2Fg9IQ a4ajBk vP9nXo QUaueC m3YtLR FvZlg JJ8Eldred HZtai3 1c2051 AC0KqY 3%2BEU aCvKiQ trMwF INTERFACE [facility] [address], [place], [address], 11/10/2024 10:06:22 11/29/19 25 11/28/2024 XR, shoul leora, 2 or more view [email or web address] ?Encry pted=s hAaTro YD8dLq bEUv6g %2BXZw aYqtaq 0bqfl% 2Fg9IQ a4ajBk vP9nXo QUaueC m3YtLR FvZl JJ8Eldred HZtai3 0r4614 AC0Kla n2GU6a uKiQtr MwF INTERFACE [employer] [facility] [address], [place], [address], 11/28/2024 14:46:33 11/29/19 25 11/28/2024 XR, shoul leora, 2 or more view [email or web address] ?Encry pted=s hAaTro YD8dLq bEUv6g %2BXZw aYqtaq 0bqfl% 2Fg9IQ a4ajBk vP9nXo QUaueC m3YtLR FvZl JJ8mAn HZtai3 2g0654 AC0Kla n2GU6a uKiQtr MwF INTERFACE [employer] [facility] [address], [place], [address], 11/28/2024 14:46:35 Result Notes None recorded. Procedures Surgical History Date Name Laterality Status Provider Name and Address Organization Details Recorded Time 5 Sports Shoulder completed Samuel Valadez PA-C [address], [place], [address], [facility] 11/28/2024 15:31:19 Imaging Results None recorded. Procedure Notes None recorded. Medical Equipment None Reported. Allergies No known drug allergies Medications Name Sig Start Date Stop Date Status Note LastModified by Organization Details LastModified Time amoxicillin 500 mg capsule TAKE 4 PILLS BY MOUTH 1 HOUR PRIOR TO PROCEDURE active Not Available Not Available No t Available Vitals Date Recorded Body height Body mass index (BMI) Body weight Provider Name and Address Organization Details Last Updated DateTime 11/10/2024 170.18 cm 34.8 kg/m2 972797.51 g [facility] 11/10/2024 09:58:01 Date Recorded Body height Body mass index (BMI) Body weight Provider Name and Address Organization Details Last Updated DateTime 11/28/2024 170.18 cm 35.2 kg/m2 549022.28 g [facility] 11/28/2024 14:28:34 Social History None recorded. Functional Status None recorded. Mental Status None recorded. Family History Nothing Reported. Medical History Condition Response Allergies/Hayfever N Coronary Artery Disease N Anxiety/Depression N Breathing or lung disorders N Emphysema N Nerve Disorders N Thyroid Problems N COPD N Pacemaker N Anemia N Kidney/Bladder Problems N Vascular Disease N Heart Trouble N Heart Attack (CA) N Gastrointestinal Disease N Cholesterol N Diabetes N Autoimmune disease N Bleeding Disorder N Inflammatory Joint disease N Orthotics N Arthritis N Seizures/Epilepsy N Blood Clot N AIDS/HIV N Congestive Heart Failure (CHF) N Acid Reflux (GERD) N Cancer N Stroke N Asthma N Circulation Problems N Peripheral Vascular Disease N Sleep Apnea N Hepatitis N Heart Disease N Rheumatoid Arthritis N Arrhythmia N Pulmonary Embolism N Headaches N Fibromyalgia N Hypertension N Osteoporosis N Gynecological HistoryNo gynecological history recorded. Obstetrics History GPAL:G 0 P 0 0 0 0 Past Encounters Encounter ID Performer Location Encounter Start Date Encounter Closed Date Diagnosis/Indication Diagnosis SNOMED-CT Code Diagnosis ICD10 Code Diagnosis Note [id number] [facility] [address] [place] [address] 11/10/2024 09:42:35 11/22/2024 12:27:00 History of bilateral total knee replacement [id number] 900015 Z96.234 [id number] [facility] [address] [facility] [address] [place] [address] 11/28/2024 14:22:12 12/14/2024 12:05:12 Pain of left shoulder joint [id number] 0719156 M25.512 Bilateral shoulder osteoarthritis 5103067300 33067 M19.011 M19.012 Health Concerns Section Related Observation LastModified by Organization Detai ls LastModified Time None Recorded Concern Status LastModified by Organization Details LastModified Time None Recorded Advance Directives Directive None Recorded Payers Encounter Date Sequence Insurance Name Policy Number Policy Portillo Covered Member ID Portillo Member ID Guarantor Name 11/10/[address] [place] [address] [id number] [facility] [id number] [facility] 11/28/[address] [place] [address] [id number] [facility] [id number] [facility] Notes Date Note Type Note Provider Name and Address Organization Details Recorded Time 11/10/2024 text/html I am seeing the patient today under the supervision of Dr. Gonzalez who was available but who did not see the patient. Patient presented for evaluation of her bilateral knees. She is status post bilateral total knee arthroplasty with Dr. Viktoriya spencer in 2012. States that over the last couple months started developing some weakness and some soreness at night. Mainly difficulty and weakness going up and down stairs, procedure position. Does note some crepitus over the anterior aspect of that knee with knee flexion activities no significant pain or discomfort during the day at all. Denies fever chills or other recent procedures. Kenan Diamond PA-C [address], [place], [address], [facility] 11/10/2024 11:00:21 11/28/2024 text/html I am seeing the patient today under the supervision of Dr. Khan who was available but who did not see the patient. Diagnosis: Glenohumeral osteoarthritis left shoulder advanced HPI: Patricia is a pleasant 64-year-old female presents to our office for initial orthopedic evaluation left shoulder pain. Reports symptoms began about a year ago. She does recall a remote history of a dislocation of this left shoulder many years ago. She has pain and weakness of the shoulder discomfort with pain movements behind her back and above her head. Difficulty lying on the involved side and at nighttime. Concerned by this she presents for orthopedic evaluation Past Medical/Surgical History/Meds/Allergies reviewed and charted. Patient is status post bilateral knee arthroplasty. Physical Exam: The patient is well appearing and in no apparent distress. Alert and oriented x3. Gait is symmetric. afebrile, vital signs stable, in no apparent distress, oriented to person/place/time. Gait symmetric. skin intact without erythema. Left SHOULDER: no significant redness, warmth or deformity. Range of motion fairly well-preserved lacking just 5 to 10 degrees of terminal motion in all planes with mild discomfort. Strength overall clinically seems intact 5/5 with resisted elevation, external rotation and internal rotation. Some pain reproduced with strength testing but intact mechanics. Impingement sign positive. Some intra-articular crepitus noted. Acromioclavicular joint tender to palpation and pain with cross body maneuver. Apprehension negative. Neurovascular Exam within normal limits. Contralateral normal SHOULDER: no redness, warmth, deformity. Range of motion full in all planes with no stiffness. Strength 5/5 all muscle groups. Apprehension negative. Impingement sign negative. Acromioclavicular joint benign with no cross body adduction pain. Neurovascular Exam wnl. Peripheral, vascular, lymphatic examination, skin, neurological, coordination, reflexes, sensation are within normal limits. Radiographs: 4 views of the left shoulder ordered, obtained and independently reviewed today at [facility]. AP, Grashey, Outlet and Axillary views show advanced glenohumeral arthritis with some inferior joint space narrowing and inferior osteophyte formation. Loss of normal round humeral head contour. Some arthritic changes of the AC joint.. Impression: Left shoulder pain with osteoarthritis Plan: Treatment options discussed with Patricia which include both surgical and nonsurgical options. Potentially a candidate in the future for shoulder arthroplasty. Currently her function is very well-preserved with intact near full motion and intact strength. I believe she would benefit from some physical therapy to improve conditioning and strength. Also offered cortisone injection, topical treatments such as Voltaren gel, oral medications such as NSAIDs. She is comfortable with these conservative measures. She agreed to injection today which was performed intra-articularly from a posterior approach. Patient tolerated procedure well. Recheck in our office as needed - Medical Practice speech recognition kennel manager dog track software was used to create portions of this document. An attempt at proofreading has been made to minimize errors. Please call for corrections. Samuel Valadez PA-C [address] [facility] [address], [place], [address], [facility] 11/28/2024 15:31:51 OBGyn Episode No OBEpisode recorded.
== END 2025-01-16 11:38 | disposition home or self-care (01) ==
LOC: HO.HGI 10:58
PROVIDERS: PCP Internal Medicine; Visit Provider Nurse Practitioner Family
DX: K82.8 Other specified diseases of gallbladder (principal); K21.00 Gastro-esophageal reflux disease with esophagitis, without bleeding
CPT/HCPCS: 99213

== ENCOUNTER → 2025-01-16 10:57 | Outpatient (BNVA) | payer OTHER, SELFPAY | PROVIDERS: PCP Internal Medicine; Visit Provider Nurse Practitioner Family ==

== ENCOUNTER 2025-02-20 10:31 | Outpatient (AMB) | payer OTHER, SELFPAY ==
--- OUTSIDE RECORDS SUMMARY | 2025-01-09 09:45 | XMS_ITS | Continuity of Care Document ---
Author Organization [facility] Address [address] [place] [address] Phone Care Team Providers Care Field Health Officer Name Role Phone Ned LEIJA, RVT, NANCY, [place] Unavailable U navailable Allergies, Adverse Reactions, Alerts Substance Reaction Status Criticality No Known Allergies Active No Inform ation Procedures Procedure Date No Charge For Services Offic/outpt E&m Estab 5 Min Trial- Telem [...] Diagnoses Date Provider Providers Copied on Encounter [facility], [address] [place] [address] Dr Alexis [address], [place], [id number], [place] tel:[phone] [place] Nevus, non-neoplast ic Benjamin- 5 Ned LEIJA RVT, NANCY Albert. [address] [place] [address], Faith montaño [place], [id number], [place]. tel:[phone] Referring Provider: Viridiana Connor NP, [address] [facility] [address] , [place], [address]. tel:[phone] Offic/outpt E&m Estab 5 Min Trial- Telemedicine [place] & [place] [facility], [address] [place] [address] [address], [id number], [place] tel:[phone] [place] Venous insufficienc y (chronic) (peripheral) 4 Godwin Santizo. [address] [place] [address], Faith montaño [place], [id number], [place]. tel:[phone] Referring Provider: Viridiana Connor NP, [address] [facility] [address] [place] [address], [address]. tel:[phone] Office/Outpt E&M Established 10 Mins- [place] & [place] [facility], [address] [place] [address] [address], [place], [id number], [place] tel:[phone] [place] Varicose veins of left lower extremity with pain Nov 4 Ned LEIJA RVT, NANCY Albert. [address] [place] [address], Faith montaño [place], [id number], [place]. tel:[phone] Referring Provider: Viridiana Connor NP, [address] [facility] [address], [place], [address]. tel:[phone] [facility], [address] [place] [address] [address], [id number], [place] tel:[phone] [place] Varicose veins of left lower extremity with other complication s Oct-3 4 Ned LEIJA RVT, NANCY Albert. [address] [place] [address], Faith montaño [place], [id number], [place]. tel:[phone] Referring Provider: Viridiana Connor NP, [address] [place] [address] [address], [place], [address]. tel:[phone] [facility], [address] [place] [address] [address], [id number], [place] tel:[phone] CVR - [facility] Encounter for follow-up examination after completed treatment for conditions other than malignant neoplasmVari cose veins of left lower extremity with pain Oct-3 4 Ned LEIJA RVT, NANCY Albert. [address] [place] [address], [place], [place], [id number], [place]. tel:[phone] Referring Provider: Viridiana Connor NP, [address] [place] [address] [address], [place], [address]. tel:[phone] [facility], [address] [place] [address] Dr Alexis [address]Suite [place] Franco [place], [id number], [place] tel:[phone] [facility] Chronic venous hypertension (idiopathic) with inflammation of left lower extremity Oct-2 4 Ned LEIJA RVT, NANCY Albert. [address] [place] [address], [place], [place], [id number], [place]. tel:[phone] Referring Provider: Viridiana Connor NP, [address] [place] [address] [address], [place], [address]. tel:[phone] [facility], [address] [place] [address] [address], [id number], [place] tel:[phone] [facility] No Information Oct-2 4 Ned LEIJA RVT, NANCY Albert. [address] [place] [address] Suite [facility], [place], [place], [id number], [place]. tel:[phone] Offic/outpt E&m Estab 5 Min Trial- Telemedicine [place] & [place] [facility] MD RAY, [address] [place] [address] Dr Alexis [address], [id number], [place] tel:[phone] CV[place] - [place] Localized edemaVenous insufficienc y (chronic) (peripheral) Oct-0 4 Godwin Santizo. [address] [place] [address] [address], [facility] [place], [id number], [place]. tel:[phone] Referring Provider: Viridiana Connor NP, [address] [facility] [address], [place], [address]. tel:[phone] Offic Cons New/estab Mod-hi 60- [facility] & [place] [facility], [address] [place] [address] Dr [address], [place], [id number], [place] tel:[phone] [place] Varicose veins of bilateral lower extremities with other complication sLocalized edema 4 Ned LEIJA RVT, NANCY Albert. [address] [place] [address] [address], [facility] [place], [id number], [place]. tel:[phone] Referring Provider: Viridiana Connor NP, [address] [facility] [address], [place], [address]. tel:[phone] [facility], [address] [place] [address] Dr [address], [place], [id number], [place] tel:[phone] [place] Varicose veins of bilateral lower extremities with pain 4 Ned LEIJA RVT, NANCY Albert. [address] [place] [address], [facility] [place], [id number], [place]. tel:[phone] Referring Provider: Viridiana Connor NP, [address] [facility] [address], [place], [address]. tel:[phone] Family History Family Member Type Diagnosis Age At Onset No Information Payers Payer name Insurance type Covered libertarian ID Authoriza tion(s) Self Pay 09 Social History Type Description Quantity Date Captured Comments Alcohol Use Details Unknown Caffeine Use Details Unknown Tobacco Use Status Current non-smoker Smoking Status Never Smoker Non-Smoking Tobacco Use Details : No Details Available : No Details Available Sex Female Vital Signs Date / Time: Height Weight BMI Pulse Rate Blood Pressure Temperature Respiratory Rate Body Surface Area Head Circumference Head Circ. Percentile Wt./Robert. Percentile BMI percentile Pulse Ox Inhaled Ox 99.790 kg (220.00 lbs) 34.5 7 kg/m eter (2) 132/82 mm[Hg] Chief Complaint And Reason For Visit No Information Reason For Referral Reason For Referral No Information Plan Of Treatment Date Type Action Status Goal Diet education completed Goal Diet education completed Referral Ordered: Weight management: Referral to physician timeframe: 3 Months (related to Body mass index (BMI) 34.0-34.9, adult) ordered Referral Ordered: Weight management: Referral to physician timeframe: 3 Months (related to Body mass index (BMI) 34.0-34.9, adult) ordered History Of Present Illness Encounter Date Complaint History Of Prese nt Illness No Information Functional Status Date Functional Assessmen t No Information Instructions Date Instruction Additional Infor tim Diet education Related to Body mass index (BMI) 34.0-34.9, adult Giving Encouragement to exercise Related to Body mass index (BMI) 34.0-34.9, adult Lifestyle education Related to B joe mass index (BMI) 34.0-34.9, adult Patient education booklet given Related to Nevus, non-neoplastic Patient education booklet given Related to Localized [...] with other complications Assessments Type Assessment Date No Information Patient Care Teams Name Effective Dates (start - stop) Status Members No Information
--- NOTE | 2025-02-20 10:33 | MHC.OFFVIS ---
Vital Signs 02/20/25 10:44 Height 5 ft 7.5 in Weight 226 lb BMI 34.9 BP 188/88 H Blood Pressure Location Lt brachial Position Sitting Pulse 71 Intake Visit Reasons: Gallbladder problems Intake Note: Patient is seen in office for evaluation of the gallbladder. Pt c/o: onset 2 yrs, horrible pain in the center of the stomach, nausea, vomit, avoiding certain foods, greasy food is worse, denies diarrhea, constipation HIDA: 06/11/23 Tax Clerk Required: No Accompanied by: Self / Same As Patient Allergies No Known Allergies Allergy (Verified 02/20/25 10:42) HPI Comments Details: 64-year-old female patient presenting with complaints of abdominal pain located in the epigastrium which 1st began approximately 3 years ago. The pain seems to be associated with specific foods including chocolate, spicy foods, fatty meats which lead to abdominal pain and vomiting. The pain usually begin several hours after eating especially when laying down often disrupting her sleep. Previous endoscopy revealed inflammatory changes in the stomach and she subsequently made dietary changes including avoiding spicy foods. She feels her symptoms all began after attempting a keto diet for approximately 1 year. Ultrasound of the abdomen revealed multiple gallstones within the gallbladder without wall thickening or pericholecystic fluid. Subsequent HIDA scan performed last year confirmed filling of the gallbladder however the ejection fraction was 0% suggestive of chronic cholecystitis/biliary dyskinesia. She presents today to discuss possible cholecystectomy. [facility] Medical History Acid reflux Epigastric pain Cholelithiasis Surgical History History of esophagogastroduodenoscopy (EGD) H/O colonoscopy Hx of total knee replacement Family History Mother Whitakers disease Heart transplant recipient Social History Household Members Other:: no kids Alcohol intake: current Patient Tobacco Use Status: Former Tobacco user Current occupational status: employed Review of Systems Const All systems reviewed & are unremarkable except as noted in HPI and below Denies chills, Denies fever(s), Denies headache(s), Denies poor appetite and Denies weakness ENT Denies headache(s) Card Denies chest pain, Denies irregular heart rhythm, Denies palpitations and Denies dyspnea Resp Denies cough, Denies excessive phlegm production and Denies dyspnea GI Reports abdominal pain, Denies bloating, Denies change in bowel habits, Denies constipation, Reports heartburn, Denies diarrhea, Reports nausea and Reports vomiting Denies urinary frequency Musc Denies back pain, Denies muscle weakness and Denies numbness Skin/Breast Denies changing lesions and Denies unusual bruising Neuro Denies headache(s), Denies numbness, Denies paresthesias and Denies weakness Psych Denies anxiety and Denies depression Endo Denies palpitations Babatunde/Lymph Denies lymphadenopathy Physical Exam Vital Signs: Last Vital Signs Pulse 71 02/20/25 10:44 BP 188/88 H 02/20/25 10:44 BMI result Body Mass Index 34.9 Const General: cooperative and no acute distress Nutritional Appearance: well nourished Orientation/consciousness: patient oriented x3 Limitations: no limitations HEENT Head: Yes normocephalic and Yes atraumatic Ears: hearing grossly normal bilaterally Resp Effort & Inspection: normal respiratory effort, no audible wheezes, no cough and no respiratory distress Cardio Jugular venous distension: no JVD GI Inspection: Yes normal to inspection Palpation (GI): Soft to palpation, nontender, no guarding and not rigid Rectal Exam - Female: deferred Skin Other: Warm, dry, no rash Neuro General: patient oriented x3 Extrem General: Yes no clubbing, cyanosis or edema Results Reviewed Results Reviewed: Ultrasound abdomen, HIDA scan Assessment & Plan Assessment & Plan (1) Cholelithiases: Comment: Intermittent abdominal pain, nausea vomiting then resolves, Code(s): K80.20 - Calculus of gallbladder without cholecystitis without obstruction Category: Medical Qualifiers: Biliary obstruction: without biliary obstruction Cholecystitis presence: without cholecystitis Cholelithiasis location: gallbladder Qualified Code(s): K80.20 - Calculus of gallbladder without cholecystitis without obstruction (2) Dyskinesia of gallbladder: Code(s): K82.8 - Other specified diseases of gallbladder Category: Medical Plan 64-year-old female patient with complaints of epigastric abdominal pain of 3 years' duration somewhat helped by avoiding spicy and fatty foods however she continues to have some continued epigastric pain. Previous workup with an ultrasound revealed several gallstones within the gallbladder and a HIDA scan confirmed biliary dyskinesia/chronic cholecystitis with an ejection fraction of 0%. I reviewed the procedure, risks, and alternatives of laparoscopic cholecystectomy including the possibility of requiring an open cholecystectomy. She consents to the laparoscopic or possible open cholecystectomy and will be scheduled as a short-stay surgery. Coding Level of Care Code New Pt Level 4 (66923) Diagnoses Calculus of gallbladder without cholecystitis without obstruction K80.20 Biliary obstruction: without biliary obstruction Cholecystitis presence: without cholecystitis Cholelithiasis location: gallbladder Dyskinesia of gallbladder K82.8
[2025-02-20 10:44] VITALS: BP 188/88; PULSE 71; BMI 34.9
--- OUTSIDE RECORDS SUMMARY | 2025-02-20 11:44 | XMS_ITS | Data Portability ---
Author Organization LAURE Hermes Navarro [facility] Surgeons [facility], [facility] Address [address] [place] [address] Care Team Providers Care Drainlayer Name Role Phone FRANC GONZALEZ Primary Care Provider [phone] Assessment Encounter Date Assessment Date Assessment LastModified [...] claudia training. 2024 025 jared Not available 5 16:40:22 Procedures None recorded. Surgeries None recorded. Imaging XR, shoulder, 2 or more view - room 222, L shoulder 4v 2024 025 jared [facility], [address], [place], [address], 5 16:40:22 XR, knee, 3 view - room 204, hx of bilateral TKRs viktoriya 2024 025 bpuchalsk i1 [facility], [address], [place], [address], 5 11:14:21 Medication Orders None recorded. Patient TargetsNo [...] /uL 3.4-10 .8 normal Not Available [facility] ([facility]) [address] [place], [address], 11/08/2024 06:06:24 11/08/19 25 11/08/2024 CBC WITH DIFFE RENTI AL/PL ATELE T RBC 4.31 x10e6 /uL 3.77-5 .28 normal Not Available [facility] ([facility]) [address] [place], [address], 11/08/2024 06:06:24 11/08/19 25 11/08/2024 CBC WITH DIFFE RENTI AL/PL ATELE T hemoglobin 13.6 g/dL 11.1-1 5.9 normal Not Available [facility] ([facility]) [address] [place], [address], 11/08/2024 06:06:24 11/08/19 25 11/08/2024 CBC WITH DIFFE RENTI AL/PL ATELE T hematocrit 40.1 % 34.0-4 6.6 normal Not Available [facility] ([facility]) [address] [place], [address], 11/08/2024 06:06:24 11/08/19 25 11/08/2024 CBC WITH DIFFE RENTI AL/PL ATELE T MCV 93 fL 79-97 normal Not Available [facility] ([facility]) [address], [place], [address], 11/08/2024 06:06:24 11/08/19 25 11/08/2024 CBC WITH DIFFE RENTI AL/PL ATELE T MCH 31.6 pg 26.6-3 3.0 normal Not Available [facility] ([facility]) [address], [place], [address], 11/08/2024 06:06:24 11/08/19 25 11/08/2024 CBC WITH DIFFE RENTI AL/PL ATELE T MCHC 33.9 g/dL 31.5-3 5.7 normal Not Available [facility] ([facility]) [address], [place], [address], 11/08/2024 06:06:24 11/08/19 25 11/08/2024 CBC WITH DIFFE RENTI AL/PL ATELE T RDW 12.6 % 11.7-1 5.4 Not Available [facility] ([facility]) [address] [place], [address], 11/08/2024 06:06:24 11/08/19 25 11/08/2024 CBC WITH DIFFE RENTI AL/PL ATELE T platelets 253 x10e3 /uL 150-45 0 normal Not Available [facility] ([facility]) [address] [place], [address], 11/08/2024 06:06:24 11/08/19 25 11/08/2024 CBC WITH DIFFE RENTI AL/PL ATELE T neutrophils 58 % not estab. normal Not Available [facility] ([facility]) [address] [place], [address], 11/08/2024 06:06:24 11/08/19 25 11/08/2024 CBC WITH DIFFE RENTI AL/PL ATELE T lymphs 26 % not estab. normal Not Available [facility] ([facility]) [address], [place], [address], 11/08/2024 06:06:24 11/08/19 25 11/08/2024 CBC WITH DIFFE RENTI AL/PL ATELE T monocytes 9 % not estab. normal Not Available [facility] ([facility]) [address], [place], [address], 11/08/2024 06:06:24 11/08/19 25 11/08/2024 CBC WITH DIFFE RENTI AL/PL ATELE T eos 5 % not estab. normal Not Available [facility] ([facility]) [address], [place], [address], 11/08/2024 06:06:24 11/08/19 25 11/08/2024 CBC WITH DIFFE RENTI AL/PL ATELE T basos 1 % not estab. normal Not Available [facility] ([facility]) [address] [place], [address], 11/08/2024 06:06:24 11/08/19 25 11/08/2024 CBC WITH DIFFE RENTI AL/PL ATELE T immature cells LABORER ORCHARD Not Available [facility] ([facility]) [address] [place], [address], 11/08/2024 06:06:24 11/08/19 25 11/08/2024 CBC WITH DIFFE RENTI AL/PL ATELE T neutrophils (absolute) 4.3 x10e3 /uL 1.4-7. 0 normal Not Available [facility] ([facility]) [address] [place], [address], 11/08/2024 06:06:24 11/08/19 25 11/08/2024 CBC WITH DIFFE RENTI AL/PL ATELE T lymphs (absolute) 1.9 x10e3 /uL 0.7-3. 1 normal Not Available [facility] ([facility]) [address], [place], [address], 11/08/2024 06:06:24 11/08/19 25 11/08/2024 CBC WITH DIFFE RENTI AL/PL ATELE T monocytes(ab solute) 0.6 x10e3 /uL 0.1-0. 9 normal Not Available [facility] ([facility]) [address], [place], [address], 11/08/2024 06:06:24 11/08/19 25 11/08/2024 CBC WITH DIFFE RENTI AL/PL ATELE T eos (absolute) 0.4 x10e3 /uL 0.0-0. 4 normal Not Available [facility] ([facility]) [address] [place], [address], 11/08/2024 06:06:24 11/08/19 25 11/08/2024 CBC WITH DIFFE RENTI AL/PL ATELE T baso (absolute) 0.1 x10e3 /uL 0.0-0. 2 normal Not Available [facility] ([facility]) [address] [place], [address], 11/08/2024 06:06:24 11/08/19 25 11/08/2024 CBC WITH DIFFE RENTI AL/PL ATELE T immature granulocytes 1 % not estab. Not Available [facility] ([facility]) [address] [place], [address], 11/08/2024 06:06:24 11/08/19 25 11/08/2024 CBC WITH DIFFE RENTI AL/PL ATELE T immature grans (abs) 0.1 x10e3 /uL 0.0-0. 1 Not Available [facility] ([facility]) [address] [place], [address], 11/08/2024 06:06:24 11/08/19 25 11/08/2024 CBC WITH DIFFE RENTI AL/PL ATELE T NRBC LABORER ORCHARD Not Available [facility] ([facility]) [address], [place], [address], 11/08/2024 06:06:24 11/08/19 25 11/08/2024 CBC WITH DIFFE RENTI AL/PL ATELE T hematology comments: LABORER ORCHARD Not Available [facility] ([facility]) [address], [place], [address], 11/08/2024 06:06:24 11/08/19 25 11/08/2024 SEDIM ENTAT ION RATE- WESTE RGREN sedimentatio n rate-westerg marilu 4 mm/HR 0-40 normal Not Available [facility] ([facility]) [address], [place], [address], 11/08/2024 06:06:25 11/08/19 25 11/08/2024 C-CATHLEEN CTIVE PROTE IN, QUANT C-reactive protein, quant 2 mg/L 0-10 normal Not Available [facility] ([facility]) [address], [place], [address], 11/08/2024 06:06:26 11/11/19 25 11/10/2024 XR, knee, 3 view [email or web address] ?Encry pted=s hAaTro YD8dLq bEUv6g %2BXZw aYqtaq 0bqfl% 2Fg9IQ a4ajBk vP9nXo QUaueC m3YtLR FvZlgJ JJ8mAn HZtai3 2i9106 AC0KqY 3%2BEU aCvKiQ trMwF INTERFACE [facility] [address], [place], [address], 11/10/2024 10:06:20 11/11/19 25 11/10/2024 XR, knee, 3 view [email or web address] ?Encry pted=s hAaTro YD8dLq bEUv6g %2BXZw aYqtaq 0bqfl% 2Fg9IQ a4ajBk vP9nXo QUaueC m3YtLR FvZl J8Ashton HZtai3 5u0342 AC0KqY 3%2BEU aCvKiQ trMwF INTERFACE [facility] [address] [facility] [address], [place], [address], 11/10/2024 10:06:22 11/29/19 25 11/28/2024 XR, shoul leora, 2 or more view [email or web address] ?Encry pted=s hAaTro YD8dLq bEUv6g %2BXZw aYqtaq 0bqfl% 2Fg9IQ a4ajBk vP9nXo QUaueC m3YtLR FvZl[address] HZtai3 8t6256 AC0Kla n2GU6a uKiQtr MwF INTERFACE [facility] [address] [facility] [address], [place], [address], 11/28/2024 14:46:33 11/29/19 25 11/28/2024 XR, shoul leora, 2 or more view [email or web address] ?Encry pted=s hAaTro YD8dLq bEUv6g %2BXZw aYqtaq 0bqfl% 2Fg9IQ a4ajBk vP9nXo QUaueC m3YtLR FvZl JJ8Ashton HZtai3 6a5065 AC0Kla n2GU6a uKiQtr MwF INTERFACE [facility] [address] [facility] [address], [place], [address], 11/28/2024 14:46:35 Result Notes Documentation Provider Name and Address Organization Details Recorded Time Xr, Knee, 3 View : [email or web address] Encrypted=ggKxTxzIM6vRvqO Uv6g%9UZHdqHgecp8htln%2Fg 5JAk8leHcjY5yLoEEoefPy0Jy RAPsHctTBN8jIlPUqtc61u157 1EA3OdS7%2BEUaCvKiQtrMwF Not Available [facility] 11/10/2024 10:0 6:21 Xr, Knee, 3 View : [email or web address] Encrypted=osRdIlfHT9cWufF Uv6g%2OPUdzQdhjf0ogad%2Fg 6WEu4yyBymJ6lPdDXgicLb0Bj XNQzYgbGJS7eNgHGunj45j769 8MI4ToF4%2BEUaCvKiQtrMwF Not Available [facility] 11/10/2024 10:0 6:23 Xr, Shoulder, 2 Or More View : [email or web address] Encrypted=uqEiMgdCQ9qTpmF Uv6g%3ZJVaaHahcl1lbww%2Fg 4AYm4nsDviF3qFhRRnqbBj8Eh JITmXchUOZ0uJdWAqfn73i878 0TG0Pdpi8PN2qrVmQznYnR Not Available [facility] 11/28/2024 14:46: 34 Xr, Shoulder, 2 Or More View : [email or web address] Encrypted=wuYeJzmKB2mIdgF Uv6g%2SFCaoNlkge5agos%2Fg 7JXi9duYwdZ8nCnWBpdwLl2Kk WWOlEnsSPY4sLcRRjeb92k223 8EK5Uymf9KS7lsVaMjwMgX Not Available [facility] 11/28/2024 14:46: 35 Procedures Surgical History Date Name Laterality Status Provider Name and Address Organization Details Recorded Time Sports Shoulder completed Samuel Valadez PA-C [address], [place], [address], [facility] 11/28/2024 15:31:19 Imaging Results None recorded. Procedure [...] Updated DateTime 11/10/2024 170.18 cm 34.8 kg/m2 342183.51 g [facility] 11/10/2024 09:58:01 Date Recorded Body height Body mass index (BMI) Body weight Provider Name and Address Organization Details Last Updated DateTime 11/28/2024 170.18 cm 35.2 kg/m2 005664.28 g [facility] 11/28/2024 14:28:34 Social History None recorded. Functional Status None recorded. Mental Status None recorded. Family History Nothing Reported. Medical History Condition Response Allergies/Hayfever N Coronary Artery Disease N Breathing or lung disorders N Anxiety/Depression N Emphysema N Nerve Disorders N Thyroid Problems N COPD N Pacemaker N Anemia N Kidney/Bladder Problems N Vascular Disease N Heart Trouble N Heart Attack ([place]) N Gastrointestinal Disease N Cholesterol N Diabetes [...] SNOMED-CT Code Diagnosis ICD10 Code Diagnosis Note [id number] SANTOS Lang [address] floor [address] [place] [address] 11/10/2024 09:42:35 11/22/2024 12:27:00 History of bilateral total knee replacement [id number] 231059 Z96.509 7645533 SANTOS Pollard [facility] [address] [facility] [place] [address] 11/28/2024 14:22:12 12/14/2024 12:05:12 Pain of left shoulder joint [id number] 4193120 M25.512 Bilateral shoulder osteoarthritis 4155598123 14231 M19.011 M19.012 Health Concerns Section Related Observation LastModified by Organization Detai ls LastModified Time None Recorded Concern Status LastModified by Organization Details LastModified Time None Recorded Advance Directives Directive None Recorded Payers Insurance Date Sequence Insurance Name Policy Number Policy Portillo Covered Member ID Portillo Member ID Guarantor Name 12/14/[address] [place] [address] [id number] [facility] [id number] [facility] Notes Date Note Type Note Provider Name [...] other recent procedures. Kenan Diamond PA-C [address], [place], [address], [facility] 11/10/2024 11:00:21 11/28/2024 text/html [...] ordered, obtained and independently reviewed today at [facility]. AP, Grashey, Outlet and Axillary views [...] as needed - Medical Practice speech recognition plastic hospital products assembler software was used to create portions of this document. An attempt at proofreading has been made to minimize errors. Please call for corrections. Samuel Valadez PA-C [address], [place], [address], [facility] 11/28/2024 15:31:51 OBGyn Episode No OBEpisode recorded.
== END 2025-02-20 11:10 | disposition home or self-care (01) ==
LOC: HO.HGS 10:32
PROVIDERS: PCP Internal Medicine; Visit Provider Surgery
DX: K80.20 Calculus of gallbladder without cholecystitis without obstruction (principal); K82.8 Other specified diseases of gallbladder
CPT/HCPCS: 99204

== ENCOUNTER 2025-03-09 05:50 | Day surgery (SDC) | payer OTHER, SELFPAY ==
--- OUTSIDE RECORDS SUMMARY | 2025-03-06 12:53 | XMS_ITS | Data Portability ---
Author Organization LAURE Hermes Navarro [facility] Surgeons [facility] Address [address] [place] [address] Care Team Providers Care Carroter Name Role Phone FRANC GONZALEZ Primary Care [...] [facility], [address], [place], [address], 5 16:40:22 XR, knee, 3 view - room 204, hx of bilateral TKRs viktoriya 2024 025 bpuchalsk i1 [facility], [address], [place], [address], 5 11:14:21 Medication Orders None recorded. Patient [...] /uL 3.4-10 .8 normal Not Available [facility] ([facility]) [address] [place], [address], 11/08/2024 06:06:24 11/08/19 25 11/08/2024 CBC WITH DIFFE RENTI AL/PL ATELE T RBC 4.31 x10e6 /uL 3.77-5 .28 normal Not Available [facility] ([facility]) [address] [place], [address], 11/08/2024 06:06:24 11/08/19 25 11/08/2024 CBC WITH DIFFE RENTI AL/PL ATELE T hemoglobin 13.6 g/dL 11.1-1 5.9 normal Not Available [facility] ([facility]) [address] [place], [address], 11/08/2024 06:06:24 11/08/19 25 11/08/2024 CBC WITH DIFFE RENTI AL/PL ATELE T hematocrit 40.1 % 34.0-4 6.6 normal Not Available [facility] ([facility]) [address] [place], [address], 11/08/2024 06:06:24 11/08/19 25 11/08/2024 CBC WITH DIFFE RENTI AL/PL ATELE T MCV 93 fL 79-97 normal Not Available [facility] ([facility]) [address] [facility] [address], [place], [address], 11/08/2024 06:06:24 11/08/19 25 11/08/2024 CBC WITH DIFFE RENTI AL/PL ATELE T MCH 31.6 pg 26.6-3 3.0 normal Not Available [facility] ([facility]) [address] [facility] [address], [place], [address], 11/08/2024 06:06:24 11/08/19 25 11/08/2024 CBC WITH DIFFE RENTI AL/PL ATELE T MCHC 33.9 g/dL 31.5-3 5.7 normal Not Available [facility] ([facility]) [address] [facility] [address], [place], [address], 11/08/2024 06:06:24 11/08/19 25 11/08/2024 CBC WITH DIFFE RENTI AL/PL ATELE T RDW 12.6 % 11.7-1 5.4 Not Available [facility] ([facility]) [address] [place], [address], 11/08/2024 06:06:24 11/08/19 25 11/08/2024 CBC WITH DIFFE RENTI AL/PL ATELE T platelets 253 x10e3 /uL 150-45 0 normal Not Available [facility] ([facility]) [address] [place], [address], 11/08/2024 06:06:24 11/08/19 25 11/08/2024 CBC WITH DIFFE RENTI AL/PL ATELE T neutrophils 58 % not estab. normal Not Available [facility] ([facility]) [address] [place], [address], 11/08/2024 06:06:24 11/08/19 25 11/08/2024 CBC WITH DIFFE RENTI AL/PL ATELE T lymphs 26 % not estab. normal Not Available [facility] ([facility]) [address] [facility], [place], [address], 11/08/2024 06:06:24 11/08/19 25 11/08/2024 CBC WITH DIFFE RENTI AL/PL ATELE T monocytes 9 % not estab. normal Not Available [facility] ([facility]) [address] [facility], [place], [address], 11/08/2024 06:06:24 11/08/19 25 11/08/2024 CBC WITH DIFFE RENTI AL/PL ATELE T eos 5 % not estab. normal Not Available [facility] ([facility]) [address] [facility], [place], [address], 11/08/2024 06:06:24 11/08/19 25 11/08/2024 CBC WITH DIFFE RENTI AL/PL ATELE T basos 1 % not estab. normal Not Available [facility] ([facility]) [address] [place], [address], 11/08/2024 06:06:24 11/08/19 25 11/08/2024 CBC WITH DIFFE RENTI AL/PL ATELE T immature cells MAT MAKER Not Available [facility] ([facility]) [address] [place], [address], 11/08/2024 06:06:24 11/08/19 25 11/08/2024 CBC WITH DIFFE RENTI AL/PL ATELE T neutrophils (absolute) 4.3 x10e3 /uL 1.4-7. 0 normal Not Available [facility] ([facility]) [address] [place], [address], 11/08/2024 06:06:24 11/08/19 25 11/08/2024 CBC WITH DIFFE RENTI AL/PL ATELE T lymphs (absolute) 1.9 x10e3 /uL 0.7-3. 1 normal Not Available [facility] ([facility]) [address] [facility], [place], [address], 11/08/2024 06:06:24 11/08/19 25 11/08/2024 CBC WITH DIFFE RENTI AL/PL ATELE T monocytes(ab solute) 0.6 x10e3 /uL 0.1-0. 9 normal Not Available [facility] ([facility]) [address] [facility], [place], [address], 11/08/2024 06:06:24 11/08/19 25 11/08/2024 CBC WITH DIFFE RENTI AL/PL ATELE T eos (absolute) 0.4 x10e3 /uL 0.0-0. 4 normal Not Available [facility] ([facility]) [address] [place], [address], 11/08/2024 06:06:24 11/08/19 25 11/08/2024 CBC WITH DIFFE RENTI AL/PL ATELE T baso (absolute) 0.1 x10e3 /uL 0.0-0. 2 normal Not Available [facility] ([facility]) [address] [place], [address], 11/08/2024 06:06:24 11/08/19 25 11/08/2024 CBC WITH DIFFE RENTI AL/PL ATELE T immature granulocytes 1 % not estab. Not Available [facility] ([facility]) [address] [place], [address], 11/08/2024 06:06:24 11/08/19 25 11/08/2024 CBC WITH DIFFE RENTI AL/PL ATELE T immature grans (abs) 0.1 x10e3 /uL 0.0-0. 1 Not Available [facility] ([facility]) [address] [place], [address], 11/08/2024 06:06:24 11/08/19 25 11/08/2024 CBC WITH DIFFE RENTI AL/PL ATELE T NRBC MAT MAKER Not Available [facility] ([facility]) [address] [facility], [place], [address], 11/08/2024 06:06:24 11/08/19 25 11/08/2024 CBC WITH DIFFE RENTI AL/PL ATELE T hematology comments: MAT MAKER Not Available [facility] ([facility]) [address] [facility], [place], [address], 11/08/2024 06:06:24 11/08/19 25 11/08/2024 SEDIM ENTAT ION RATE- WESTE RGREN sedimentatio n rate-westerg marilu 4 mm/HR 0-40 normal Not Available [facility] ([facility]) [address] [facility], [place], [address], 11/08/2024 06:06:25 11/08/19 25 11/08/2024 C-CATHLEEN CTIVE PROTE IN, QUANT C-reactive protein, quant 2 mg/L 0-10 normal Not Available [facility] ([facility]) [address] [facility], [place], [address], 11/08/2024 06:06:26 11/11/19 25 11/10/2024 XR, knee, 3 view [email or web address] ?Encry pted=s hAaTro YD8dLq bEUv6g %2BXZw aYqtaq 0bqfl% 2Fg9IQ a4ajBk vP9nXo QUaueC m3YtLR FvZlgJ JJ8mAn HZtai3 6r9015 AC0KqY 3%2BEU aCvKiQ trMwF INTERFACE [facility] [address], [place], [address], 11/10/2024 10:06:20 11/11/19 25 11/10/2024 XR, knee, 3 view [email or web address] ?Encry pted=s hAaTro YD8dLq bEUv6g %2BXZw aYqtaq 0bqfl% 2Fg9IQ a4ajBk vP9nXo QUaueC m3YtLR FvZl J8Quincy HZtai3 2r5118 AC0KqY 3%2BEU aCvKiQ trMwF INTERFACE [facility] [address] [facility] [address], [place], [address], 11/10/2024 10:06:22 11/29/19 25 11/28/2024 XR, shoul leora, 2 or more view [email or web address] ?Encry pted=s hAaTro YD8dLq bEUv6g %2BXZw aYqtaq 0bqfl% 2Fg9IQ a4ajBk vP9nXo QUaueC m3YtLR FvZl[address] HZtai3 3s[address]38 AC0Kla n2GU6a uKiQtr MwF INTERFACE [facility] [address] [facility] [address], [place], [address], 11/28/2024 14:46:33 11/29/19 25 11/28/2024 XR, shoul leora, 2 or more view [email or web address] ?Encry pted=s hAaTro YD8dLq bEUv6g %2BXZw aYqtaq 0bqfl% 2Fg9IQ a4ajBk vP9nXo QUaueC m3YtLR FvZl JJ8Quincy HZtai3 6b7262 AC0Kla n2GU6a uKiQtr MwF INTERFACE [facility] [address] [facility] [address], [place], [address], 11/28/2024 14:46:35 Result Notes Documentation Provider Name and Address Organization Details Recorded Time Xr, Knee, 3 View : [email or web address] Encrypted=plEzGjhXF6jAeaB Uv6g%6RJKsaMplyk3lhjg%2Fg 5HWs0zuMxhS2cSuLGhjmAp4Ua TYUyKfnEPP0tVkKQwir15p789 1OS0CgI1%2BEUaCvKiQtrMwF Not Available [facility] 11/10/2024 10:0 6:21 Xr, Knee, 3 View : [email or web address] Encrypted=pzFuTboRB6hPveO Uv6g%2FKGqqRwmvw0tpog%2Fg 9IJq6flOhxZ0xUmDIopkXl4Ci PHSyYdiMEM4hRgNUwyt62i939 2OU6DxV5%2BEUaCvKiQtrMwF Not Available [facility] 11/10/2024 10:0 6:23 Xr, Shoulder, 2 Or More View : [email or web address] Encrypted=qnQzLzhIF2iTczH Uv6g%1CUXrgTqugh7bcdq%2Fg 1ZWo0oaMjrA3yZmFGcthJv8Tq TZGyQraUMJ2sKrXPqhx95a363 7KG6Imep1YR1uvFsTojPrP Not Available [facility] 11/28/2024 14:46: 34 Xr, Shoulder, 2 Or More View : [email or web address] Encrypted=zsUrBfzZT1mCpnP Uv6g%9TEWpjWlvoh0vwng%2Fg 9XJi2eoQefH6fWhDIjwcIe9Iw KOIoIhfZLW0fFpZJucm28m403 5PY9Qhey3ZT8aoXiHvmCtA Not Available [facility] 11/28/2024 14:46: 35 Procedures Surgical History Date Name Laterality Status Provider Name and Address Organization Details Recorded Time Sports Shoulder completed Samuel Valadez PA-C [address] [facility] [address], [place], [address], [facility] 11/28/2024 15:31:19 Imaging Results [...] Updated DateTime 11/10/2024 170.18 cm 34.8 kg/m2 648640.51 g [facility] 11/10/2024 09:58:01 Date Recorded Body height Body mass index (BMI) Body weight Provider Name and Address Organization Details Last Updated DateTime 11/28/2024 170.18 cm 35.2 kg/m2 955581.28 g [facility] 11/28/2024 14:28:34 Social History None recorded. Functional Status None recorded. Mental Status None recorded. Family History Nothing Reported. Medical History Condition Response Allergies/Hayfever N Coronary Artery Disease N Anxiety/Depression N Breathing or lung disorders N Emphysema N Nerve Disorders N Thyroid Problems N COPD N Pacemaker N Anemia N Kidney/Bladder Problems N Vascular Disease N Heart Trouble N Heart Attack ([place]) N Gastrointestinal Disease N Cholesterol N Diabetes [...] SNOMED-CT Code Diagnosis ICD10 Code Diagnosis Note [id number] SANTOS Lang [address] floor [address] [place] [address] 11/10/2024 09:42:35 11/22/2024 12:27:00 History of bilateral total knee replacement 5093841983 972448 Z96.239 [id number] SANTOS Pollard - Chris [address] [place] [address] 11/28/2024 14:22:12 12/14/2024 12:05:12 Pain of left shoulder joint 8298437805 7424487 M25.512 Bilateral shoulder osteoarthritis 8199972995 42830 M19.011 M19.012 Health Concerns Section Related Observation LastModified by Organization Detai ls LastModified Time None Recorded Concern Status LastModified by Organization Details LastModified Time None Recorded Advance Directives Directive None Recorded Payers Insurance Date Sequence Insurance Name Policy Number Policy Portillo Covered Member ID Portillo Member ID Guarantor Name 12/14/2024 1 [facility] [id number] [facility] [id number] [facility] OBGy Episode No OBEpisode recorded.
[2025-03-07 09:58] VITALS: BMI 34.9
--- NOTE | 2025-03-07 14:43 | HO.ANESPROP2 ---
Documented by User: Mary Ann Paul NP 03/07/25 14:43 HPI - Anesthesia Eval Consult details Narrative: 64yo F for Cholecystectomy Laparoscopic,possible open PMFSH Active Problems Active Problems: All Active Problems Acid reflux (Acute) Dyskinesia of gallbladder (Acute) Cholelithiases (Acute) Nausea and vomiting (Acute) History of knee replacement (Acute) Abdominal pain (Acute) Past Medical History Medical History Acid reflux Epigastric pain Cholelithiasis Family History Family History Mother [place] disease Heart transplant recipient Family history of problems with anesthesia: No Surgical History Surgical History History of esophagogastroduodenoscopy (EGD) H/O colonoscopy Hx of total knee replacement History of Problems with Anesthesia: No Social History Social History Household Members Other:: no kids Are you a primary resident care spec to a significant other at home: No Do you presently have visiting nurse or other home services: No Alcohol intake: current Alcohol intake frequency: holidays/special occasions only Patient Tobacco Use Status: Former Tobacco user Second Hand Smoke Exposure: No Use of substances other than those prescribed or required for medical reasons: No Have you been hit, kicked, punched, or otherwise hurt by someone within the past year? If so, by whom?: No Are you DNR?: No Advance Directives: No Advance Directives Information Provided: Yes Advance Directives on File: No Patient : No : No Poor oral hygiene: No Current occupational status: employed Meds Allergies Allergy/AdvReac Type Severity Reaction Status Date / Time No Known Allergies Allergy Verified 02/20/25 10:42 Home Medications ?Medication ?Instructions ?Recorded ?Confirmed ?Last Taken ?Type minoxidil 2.5 mg tablet 2.5 mg PO DAILY 12/14/24 03/09/25 Unknown History Exam Height,Weight and Vital Signs: Height 5 ft 7.5 in Weight 102.512 kg Assessment and Plan Assessment Anesthesia Assessment: Chart Reviewed Final Anesthetic Review Family History of Problems with Anesthesia: No History of Problems with Anesthesia: No Documented by User: Isabelle Crowder MD 03/09/25 07:50 PMFSH Past Medical History Medical History Acid reflux Epigastric pain Cholelithiasis Family History Family History Mother [place]arle disease Heart transplant recipient Surgical History Surgical History History of esophagogastroduodenoscopy (EGD) H/O colonoscopy Hx of total knee replacement Social History Social History Household Members Other:: no kids Are you a primary resident care spec to a significant other at home: No Do you presently have visiting nurse or other home services: No Alcohol intake: current Alcohol intake frequency: holidays/special occasions only Patient Tobacco Use Status: Former Tobacco user Second Hand Smoke Exposure: No Use of substances other than those prescribed or required for medical reasons: No Have you been hit, kicked, punched, or otherwise hurt by someone within the past year? If so, by whom?: No Are you DNR?: No Advance Directives: No Advance Directives Information Provided: Yes Advance Directives on File: No Patient : No : No Poor oral hygiene: No Current occupational status: employed Meds Allergies Allergy/AdvReac Type Severity Reaction Status Date / Time No Known Allergies Allergy Verified 02/20/25 10:42 Home Medications ?Medication ?Instructions ?Recorded ?Confirmed ?Last Taken ?Type minoxidil 2.5 mg tablet 2.5 mg PO DAILY 12/14/24 03/09/25 Unknown History Exam Airway Mallampati Class: II TM Dist: >3cm Neck ROM: Full Heart: rrr Lungs: cta Assessment and Plan Assessment Anesthesia Assessment: Anesthesia Plan Discussed Final Anesthetic Review NPO: Yes ASA Class: II Final Preanesthetic Review: No Changes in Pt Med Stat, Meds/Allgs Chart Reviewed, Consent Obtained/Reviewed and Anes Risks/Benef Reviewed Patient Risk: Low Procedure Risk: Intermediate Anesthetic Plan Anesthetic Plan: GA Disposition: Standard PACU
[2025-03-09] VITALS (8 sets, daily range): BP systolic 138–155; BP diastolic 74–89; PULSE 56–75; RESP 12–16; TEMP 36.1–36.9; O2SAT 95–100; BMI 34.3
[2025-03-09] MEDS: Lactated Ringers 1,000 ML 100 ML IVCONT (06:27)
--- NOTE | 2025-03-09 07:13 | MHC.SHP ---
Pre-Procedural Eval Section A - 24 Hr Update-Section A only Date of Service: 03/09/25 The patient is an INPATIENT: No Changes since office visit: Yes Patient answered all questions; No Cold of Flu in the past 2 weeks, No New Medical Problems and No Changes in Medication The patient has been examined within 24 hours of the surgical procedure. The History & Physical has been completed within 30 days and I have reviewed it.: Yes Section B - Complete if H&P > 30 days Chief Complaint: Calculus of gallbladder without cholecystitis,perf Allergies: Allergies Allergy/AdvReac Type Severity Reaction Status Date / Time No Known Allergies Allergy Verified 02/20/25 10:42 Plan Diagnosis/Plan: Unchanged I have reviewed the history and physical and performed a pertinent physical examination on my patient. No changes have occurred unless specified. Time Spent With Patient Time: Total time managing care of this patient today ____ minutes.
[2025-03-09] MEDS: cefoTEtan disodium 2 GM VIAL IVPUSH (07:30)
--- NOTE | 2025-03-09 08:31 | W.PM.OPN ---
Operative Note Operative Note Date of Service: 03/09/25 Narrative: Preoperative diagnosis: Biliary dyskinesia, cholelithiasis Postoperative diagnosis: Same Procedure: Laparoscopic cholecystectomy Surgeon: Bubba Mallory MD Class C Truck Driver: Levi Escalera PA-C, CHARLES Izquierdo Anesthesia: General endotracheal Indications for procedure: 64-year-old female patient presenting for complaints of right upper quadrant abdominal pain with associated with nausea and vomiting. The patient underwent workup revealed gallstones within the gallbladder but also an impaired ejection fraction suggestive of chronic cholecystitis. Operative findings: Adhesions to the gallbladder suggestive of chronic cholecystitis. Large gallstone noted at the neck of the gallbladder. Multiple small gravelly stones as well. Specimen: gallbladder Estimated blood loss: 2 mL Complications: None Procedure details: Patient was brought to the OR and placed in a supine position. After administering general anesthesia the patient's abdomen was prepped with ChloraPrep and draped in a sterile fashion. A surgical time-out was called the consent confirmed. Patient received preoperative antibiotics and Venodyne boots were in place. Local anesthesia consisting of 0.5% Sensorcaine without epinephrine was infiltrated in a periumbilical region. A 5 mm incision was made above the umbilicus in a transverse fashion. The Veress needle was then inserted while elevating abdominal cavity with towel clips. After positive drop test the abdomen was insufflated to a pressure of 15 mm of mercury. The Veress needle was then removed and a 5 mm trocar inserted. The camera was inserted in the abdomen explored. A 12 mm trocar was then placed in the epigastrium. Two 5 mm trocars placed in the right upper quadrant by the recruitment and outreach assistant. The patient was placed in reverse Trendelenburg positioning and rotated to the left. The gallbladder was grasped with the fundus and retracted cephalad by the recruitment and outreach assistant. The infundibulum was then grasped and retracted away from the liver bed, also by the recruitment and outreach assistant. The Dolphin dissected was then used by the surgeon to dissect the peritoneum off the infundibulum to reveal the junction with the cystic duct. Cystic artery was noted slightly medial and posterior to the cystic duct. After obtaining a critical view the cystic duct was doubly clipped and divided. The cystic artery was then doubly clipped and divided. The gallbladder was then dissected off the liver bed using electrocautery with an L hook. Hemostasis was assured all times using the electrocautery. When the gallbladder is completely dissected off the liver bed was placed in an Endo-Catch bag and brought out through the epigastric incision. The gallbladder was sent to pathology for further examination. The abdomen was then re-examined. The liver bed was irrigated and suctioned dry. No bleeding or bile leak could be identified. CO2 was then evacuated and all trocars removed. Fascia was closed at the epigastric incision using a [id number] 0 Polysorb suture. Skin was closed in all incisions using a subcuticular 4 0 Polysorb suture by both the surgeon and recruitment and outreach assistant. Sterile dressings consisting of Steri-Strips, 2 x 2 gauze, and Tegaderm were then applied. The patient tolerated the procedure well. Sponge instrument and needle counts reported as correct. The patient was transferred to PACU in stable condition.
== END 2025-03-09 10:12 | disposition home or self-care (01) ==
PROVIDERS: PCP Internal Medicine; Visit Provider Surgery
PROC: 0FT44ZZ Resection of Gallbladder, Percutaneous Endoscopic Approach (ICD-10-PCS; CPT 47562; principal; 2025-03-09 07:30)
DX: K80.10 Calculus of gallbladder with chronic cholecystitis without obstruction (principal); K82.8 Other specified diseases of gallbladder; K31.A19 Gastric intestinal metaplasia without dysplasia, unspecified site; K21.9 Gastro-esophageal reflux disease without esophagitis; Z79.899 Other long term (current) drug therapy; Z98.890 Other specified postprocedural states; Z87.891 Personal history of nicotine dependence
CPT/HCPCS: 47562; 88304; J0690; J1100; J2003; J2250; J2405; J2704; J3010

== ENCOUNTER → 2025-03-09 05:50 | Outpatient (BNV) | payer OTHER, SELFPAY | PROVIDERS: PCP Internal Medicine; Visit Provider Surgery | DX: K80.20 Calculus of gallbladder without cholecystitis without obstruction (principal); K82.8 Other specified diseases of gallbladder | CPT/HCPCS: 47562 ==

== ENCOUNTER 2025-03-20 14:57 | Outpatient (AMB) | payer OTHER, SELFPAY ==
--- NOTE | 2025-03-20 15:08 | MHC.OFFVIS ---
Vital Signs 03/20/25 15:09 Height 5 ft 7.5 in Weight 220 lb 7.396 oz BMI 34.0 Respiration 18 Pulse 60 Intake Visit Reasons: S/P lap melissa Intake Note: Patient is seen in office for post op assessment post laparoscopic cholecystectomy. 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 She reports feeling well without significant abdominal pain, nausea or vomiting. She does get some reflux symptoms which have the improved after the surgery. She denies difficulty with the bowels. PFSH Medical History Acid reflux Epigastric pain Cholelithiasis Surgical History Hx laparoscopic cholecystectomy (03/09/25) History of esophagogastroduodenoscopy (EGD) H/O colonoscopy Hx of total knee replacement Family History Mother [place] disease Heart transplant recipient Social History Household Members Other:: no kids Are you a primary patient care assistant to a significant other at home: No Do you presently have visiting nurse or other home services: No Alcohol intake: current Alcohol intake frequency: holidays/special occasions only Comment: counts correct Patient Tobacco Use Status: Former Tobacco user Second Hand Smoke Exposure: No Current occupational status: employed Physical Exam Vital Signs: Last Vital Signs Pulse 60 03/20/25 15:09 Resp 18 03/20/25 15:09 BMI result Body Mass Index 34.0 Const General: comfortable Nutritional Appearance: well nourished Orientation/consciousness: patient oriented x3 Limitations: no limitations Resp Effort & Inspection: normal respiratory effort GI Other: Well-healed trocar incisions without redness or discharge Palpation (GI): Soft to palpation, nontender, no guarding and not rigid Neuro General: patient oriented x3 Assessment & Plan Assessment & Plan (1) Dyskinesia of gallbladder: Code(s): K82.8 - Other specified diseases of gallbladder Category: Medical (2) Cholelithiases: Comment: Intermittent abdominal pain, nausea vomiting then resolves, Code(s): K80.20 - Calculus of gallbladder without cholecystitis without obstruction Category: Medical Qualifiers: Cholelithiasis location: gallbladder Cholecystitis presence: without cholecystitis Biliary obstruction: without biliary obstruction Qualified Code(s): K80.20 - Calculus of gallbladder without cholecystitis without obstruction Plan 64-year-old female patient returning 1 week following laparoscopic cholecystectomy for biliary dyskinesia. She tolerated the procedure well and her wounds are healing nicely. She should continue to avoid lifting greater than 10 lb for 1 more week after which she may resume normal activity. She should also avoid fatty/fried foods for a total of one-month following the surgery. She should follow up as needed. Coding Level of Care Code Global (63117) Diagnoses Dyskinesia of gallbladder K82.8 Calculus of gallbladder without cholecystitis without obstruction K80.20 Cholelithiasis location: gallbladder Cholecystitis presence: without cholecystitis Biliary obstruction: without biliary obstruction
[2025-03-20 15:09] VITALS: PULSE 60; RESP 18; BMI 34.0
== END 2025-03-20 15:13 | disposition home or self-care (01) ==
LOC: HO.HGS 14:58
PROVIDERS: PCP Internal Medicine; Visit Provider Surgery
DX: K82.8 Other specified diseases of gallbladder (principal); K80.20 Calculus of gallbladder without cholecystitis without obstruction
CPT/HCPCS: 99024